=== PATIENT | male | born 1955 | race Caucasian/White ===

== ENCOUNTER 2017-10-11 13:34 | Inpatient (IN) | payer OTHER ==
[~2017-10-11] VITALS: Ht 172.7 cm; Wt 70.8 kg
[~2017-10-11 13:34] MED LIST: AMLODIPINE10 MG PO; AUGMENTIN 875 M1 TAB PO; LISINOPRIL40 MG PO; METOPROLOL TAR100 MG PO; PRINIVIL20 MG PO
--- NOTE | 2017-10-11 14:56 | RADIOLOGY REPORT ---
EXAMINATION: XR CHEST CLINICAL INFORMATION: Cough, nausea, vomiting COMPARISON: 07/08/2014 TECHNIQUE: 2 views of the chest were obtained. FINDINGS: Examination is somewhat limited by lordotic positioning. The cardiomediastinal contours appear similar compared to previous. Heavy calcification at the level of the aortic arch is unchanged. The lungs are clear without consolidation or effusion. There are mild multilevel degenerative changes involving the midthoracic spine. IMPRESSION: No acute cardiopulmonary process.
--- NOTE | 2017-10-11 15:01 | ED GENERAL ADULT ---
See Addendum History of Present Illness General Chief Complaint: General Adult Stated Complaint: MULTIPLE COMPLAINTS Source: patient, old records Exam Limitations: no limitations Vital Signs & Intake/Output Vital Signs & Intake/Output Vital Signs Date Time Temp Pulse Resp B/P B/P Pulse O2 O2 Flow FiO2 Mean Ox Delivery Rate 10/11 1739 97.8 80 15 133/61 100 Room Air Room Air 10/11 1713 98.7 74 20 140/63 100 Room Air 10/11 1553 Room Air Room Air 10/11 1355 96.4 78 15 122/77 97 Room Air Room Air Allergies Coded Allergies: procaine (HEART PALPITATIONS FOR A MINUTE AND A HALF 10/11/17) Reconcile Medications Amlodipine Besylate 10 MG TABLET 1 TAB PO DAILY BP (Reported) Chlorthalidone 25 MG TABLET 1 TAB PO DAILY BP (Reported) Lisinopril 40 MG TABLET 1 TAB PO DAILY BP (Reported) Metoprolol Tartrate 100 MG TABLET 1.5 TAB PO BID HEART/BP (Reported) Triage Note: PT TO ED FOR MULTIPLE COMPLAINTS INCLUDING DIFFUSE ABD PAIN, SHOULDER PAIN AND NECK PAIN X 4 WEEKS WITH DECREASED APPETITE AND WEAKNESS WITH SOB. REPORTS EXTREME FATIGUE WITH EXERTION, SPECIFICALLY WALKING UP STAIRS. Triage Nurses Notes Reviewed? yes Onset: 1 month Duration: week(s):, constant, continues in ED, getting worse Timing: recent history Injury Environment: home Severity: moderate, severe Modifying Factors: Worsens With: eating, movement. Associated Symptoms: back pain, cough HPI: 1 month prior to admission patient complains of frequent loose watery stool anorexia abdominal discomfort fatigue and weakness. Several days prior to admission he complains of increasing abdominal distention with nausea. 1 day prior to admission symptoms continued nausea vomiting and increased weakness unable to climb stairs. He denies fever chills chest pain shortness of breath headache dysuria rash bleeding. Past History Travel History Traveled to [place] past 21 day No Medical History Any Pertinent Medical History? see below for history Neurological: NONE EENT: NONE Cardiovascular: hypertension, abnormal EKG findings Respiratory: NONE Gastrointestinal: pancreatitis Hepatic: NONE Renal: AKF Musculoskeletal: NONE Psychiatric: NONE Endocrine: NONE Blood Disorders: NONE Cancer(s): NONE Other Medical Hx: Severe plaque psoriasis History of MRSA: No History of VRE: No History of CDIFF: No Surgical History Surgical History: non-contributory Psychosocial History Who do you live with Mother Services at Home None What is your primary language Ghanaian Tobacco Use: Current Daily Use Daily Tobacco Use Amount/Type: => 5 Cigarettes daily ETOH Use: heavy use Illicit Drug Use: denies illicit drug use Family History Family History, If Any: FATHER FH: brain cancer FH: lung cancer MOTHER FH: breast cancer Relation not specified for: FH: CAD (coronary artery disease) FH: hyperlipidemia FH: hypertension Hx Contributory? No Review of Systems Review of Systems Constitutional: Reports: see HPI, weakness. EENTM: Reports: no symptoms. Respiratory: Reports: see HPI, cough. Cardiovascular: Reports: no symptoms. GI: Reports: see HPI, abdominal pain, diarrhea, nausea, vomiting. Genitourinary: Reports: no symptoms. Musculoskeletal: Reports: no symptoms. Skin: Reports: no symptoms. Neurological/Psychological: Reports: no symptoms. Hematologic/Endocrine: Reports: no symptoms. Immunologic/Allergic: Reports: no symptoms. All Other Systems: Reviewed and Negative Physical Exam Physical Exam General Appearance: well developed/nourished, alert, awake, anxious, moderate distress, thin Head: atraumatic, normal appearance Eyes: Bilateral: normal appearance, PERRL, EOMI. Ears, Nose, Throat: normal pharynx, Dry mucous membranes Neck: normal inspection, supple, full range of motion, no midline tenderness Respiratory: normal breath sounds, chest non-tender, no respiratory distress, quiet respiration, lungs clear Cardiovascular: regular rate/rhythm, normal peripheral pulses, norml femoral pulses equa Peripheral Pulses: 4+ carotid (R), 4+ carotid (L) Gastrointestinal: soft, abnormal bowel sounds, distention, tenderness Back: normal inspection, vertebral tenderness, decreased range of motion Extremities: normal inspection, normal capillary refill, normal range of motion, no edema, no ligament instability Neurologic/Psych: no motor/sensory deficits, awake, alert, oriented x 3, normal gait, 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 Skin: intact, normal color, warm/dry Lymphatic: no anterior cervical sarah beth Core Measures ACS in differential dx? Yes CVA/TIA Diagnosis: No Sepsis Present: No Sepsis Focused Exam Completed? No Progress Differential Diagnoses I considered the following diagnoses in my evaluation of the patient: Pancreatitis dehydration pneumonia UTI pyelonephritis and acute renal failure Plan of Care: Orders Procedure Date/time Status Admit to inpatient 10/11 1641 Active Enrique, Insertion/Removal/Asses 10/11 1641 Active CULTURE,URINE 10/11 1641 Active URINALYSIS 10/11 1431 Complete TROPONIN LEVEL 10/11 1431 Complete PARTIAL THROMBOPLASTIN TIME 10/11 1431 Complete PROTHROMBIN TIME 10/11 1431 Complete AMMONIA 10/11 1431 Complete MAGNESIUM 10/11 1431 Complete LIPASE 10/11 1431 Complete ETHANOL 10/11 1431 Complete COMPREHENSIVE METABOLIC PANEL 10/11 1431 Complete CBC WITHOUT DIFFERENTIAL 10/11 1431 Complete EKG 10/11 1400 Active Current Medications Sig/Bruce Start time Last Medication Dose Stop Time Status Admin Sodium Bicarbonate 100 MEQ CONTINOUS INFUSION 10/11 1700 UNir (Sodium Bicarbonate 8.4%) Dextrose/Water 1,000 ML (D5W 1000) Laboratory Tests 10/11/17 1632: Urinalysis LIGHT H, Urine Color YEL, Urine Clarity CLEAR, Urine pH 6.0, Ur Specific [place] 1.025, Urine Protein 100 H, Urine Ketones NEG, Urine Nitrite NEG, Urine Bilirubin NEG, Urine Urobilinogen 0.2, Ur Leukocyte Esterase NEG, Ur Microscopic SEDIMENT EXAMINED, Urine RBC 1-3, Urine WBC RARE, Ur Epithelial Cells RARE, Urine Hemoglobin TRACE-INTACT H, Urine Glucose NEG 10/11/17 1545: Anion Gap 24 H, Estimated GFR 14 L, BUN/Creatinine Ratio 27.3 H, Glucose 88, Calcium 9.2, Magnesium 1.9, Total Bilirubin 0.6, AST 21, ALT 39, Alkaline Phosphatase 113, Ammonia < 9 L, Troponin I < 0.01, Total Protein 7.8, Albumin 4.2, Globulin 3.6, Albumin/Globulin Ratio 1.2, Lipase 46904 H, PT 10.0, INR 0.92, APTT 28, CBC w Diff NO MAN DIFF REQ, RBC 3.20 L, MCV 97.2 H, MCH 32.9 H , MCHC 33.9, RDW 13.2, MPV 9.5, Gran % 79.7 H, Lymphocytes % 6.9 L, Monocytes % 13.1 H, Eosinophils % 0.2, Basophils % 0.1, Absolute Granulocytes 4.0, Absolute Lymphocytes 0.3 L, Absolute Monocytes 0.7 H, Absolute Eosinophils 0, Absolute Basophils 0, Serum Alcohol < 10.0 Microbiology 10/11 1752 URINE ROUT: Urine Culture - RECD Diagnostic Imaging: Viewed by Me: CT Scan. Discussed w/RAD: CT Scan. Radiology Impression: Acute on chronic pancreatitis. No organized fluid collection. CXR Impression: No acute cardiopulmonary process. Initial ED EKG: normal axis, normal intervals, normal p-waves, normal QRS complex, normal sinus rhythm, deeper t wave inversions than previous in anterolat leads Prior EKG: changed Rhythm Strip: normal sinus rhythm Departure Departure Time of Disposition: 1650 Disposition: STILL A PATIENT Condition: Stable Clinical Impression Primary Impression: Pancreatitis, alcoholic, acute Secondary Impressions: Acute electrocardiogram changes, Acute renal failure, Diarrhea, Hyperkalemia Referrals: Blayne LYONS,Contreras Adams (PCP/Family) Departure Forms: Customer Survey General Discharge Information Admission Note Spoke With: Mike Gutierrez MD Documentation of Exam: Documentation of any treatments & extenuating circumstances including Concerns Regarding Discharge (functional status, medication knowledge or non-compliance, living conditions, etc.) that warrant an admission rather than observation: Nothing by mouth IV hydration ICU monitoring IV analgesia serial lab exam serial EKG GI evaluation renal evaluation cardiology evaluaion medication adjustment continuing care discharge planning Critical Care Note Critical Care Note Critical Care Time: 30-74 min (75)
[2017-10-11 15:56] LABS: ABSOLUTE BASOPHIL COUNT 0 /CUMM (0.0-0.2); ABSOLUTE EOSINOPHIL COUNT 0 /CUMM (0.0-0.7); ABSOLUTE LYMPH COUNT 0.3 /CUMM (1.2-3.4); ABSOLUTE MONOCYTE COUNT 0.7 /CUMM (0.10-0.60); BASOPHIL % 0.1 % (0.0-2.0); EOSINOPHIL % 0.2 % (0-5); GRANULOCYTE % 79.7 % (42.2-75.2); HEMATOCRIT 31.1 % (42-52); MEAN CORPUSCULAR HGB 32.9 PG (27.0-31.0); MEAN CORPUSCULAR HGB CONC 33.9 G/DL (33.0-37.0); MEAN CORPUSCULAR VOLUME 97.2 FL (80.0-94.0); MEAN PLATELET VOLUME 9.5 FL (7.4-10.4); PLATELET COUNT 163 /CUMM (130-400); RBC DISTRIBUTION WIDTH 13.2 % (11.5-14.5)
[2017-10-11 16:06] LABS: PTT 28 SEC (25-37)
[2017-10-11] MEDS ORDERED: AMLODIPINE BESY10 M1 PO (17:16)
[2017-10-11] MEDS ORDERED: LISINOPRIL40 M1 PO (17:16)
[2017-10-11] MEDS ORDERED: METOPROLOL TAR100 M1 PO (17:16)
[2017-10-11] MEDS ORDERED: CHLORTHALIDONE25 M1 PO (17:17)
--- NOTE | 2017-10-11 17:23 | CT SCAN REPORT ---
EXAMINATION: CT ABDOMEN AND PELVIS WITHOUT CONTRAST CLINICAL INFORMATION: Weakness diarrhea, decreased urination COMPARISON: CT 08/20/2011 TECHNIQUE: Multidetector volumetric imaging was performed from the superior aspect of the liver through the pubic symphysis. Sagittal and coronal reformatted images were obtained on the technologist's workstation. DLP: 278 mGy-cm FINDINGS: LUNG BASES: The visualized lung bases are unremarkable. LIVER, GALLBLADDER, AND BILIARY TREE: The liver is normal in size, shape, and attenuation. No focal hepatic lesion or biliary ductal dilatation is present. The gallbladder is unremarkable with no evidence of radiopaque gallstones, gallbladder wall thickening, or obvious pericholecystic inflammatory changes. PANCREAS: There are scattered coarse calcifications throughout the pancreas indicative of previous inflammation. There is mild swelling of the uncinate process of the pancreas as well as stranding of the adjacent mesenteric fat. There are a few lymph nodes adjacent to the pancreatic head which measure up to 0.7 cm in size and overall increased in number. The remainder of the gland appears mildly prominent and there is stranding and inflammatory change of the adjacent mesentery which tracks inferiorly along the third and fourth portion of the duodenum. There are no peripancreatic fluid collections. SPLEEN: Unremarkable. ADRENAL GLANDS: Unremarkable. KIDNEYS AND URETERS: The kidneys are normal in size, shape, and attenuation. No hydronephrosis, hydroureter. There is a punctate calculus in the midpole region of the right kidney. A similar 1 mm punctate calcification is identified in the upper pole the right kidney as well. Mild symmetric perinephric stranding. BLADDER: Unremarkable. GASTROINTESTINAL TRACT: There are no dilated loops of small or large bowel. No significant stool burden. The appendix is normal in caliber. ABDOMINAL WALL: No significant hernia is appreciated. LYMPH NODES: Normal. VASCULAR: Diffuse atherosclerotic calcification of the abdominal aorta and iliac arteries.. PELVIC VISCERA: Unremarkable. OSSEOUS STRUCTURES: Mild degenerative changes at L5-S1 level including endplate changes and prominent anterior osteophytes.. IMPRESSION: Acute on chronic pancreatitis. No organized fluid collection.
--- NOTE | 2017-10-11 18:33 | History & Physical ---
Donnie LYONS,Trevor 10/11/17 1831: General Information and HPI Statement: I have seen and personally examined PERLITA LEYVA and documented this H&P. The patient is a 62 year old M who presented with a patient stated chief complaint of Abdominal pain. Exam Limitations: not alert/orientated History of Present Illness: 62 year-old gentleman with a past medical history of hypertension, severe psoriasis, alcohol abuse, pancreatitis, with complaints of history of generalized malaise, decreased oral intake, and abdominal pain. When seen at the ED patient had just received midazolam 4 mg and was markedly sedated. The history was obtained from ED records and a phone conversation with the patient's mom (she only had limited information). Pt is reported to have been below his baseline finctional baseline for about a week, associated symptoms included abdominal pain nausea and vomiting. His mom confirms that the patient is an active daily EtOH user averaging about 4-5 beers a day. Records indicated that patient has had previous pancreatitis episode. Full ROS unobtainable due to sedation. Allergies/Medications Allergies: Coded Allergies: procaine (HEART PALPITATIONS FOR A MINUTE AND A HALF 10/11/17) Home Med list Amlodipine Besylate 10 MG TABLET 1 TAB PO DAILY BP (Reported) Chlorthalidone 25 MG TABLET 1 TAB PO DAILY BP (Reported) Lisinopril 40 MG TABLET 1 TAB PO DAILY BP (Reported) Metoprolol Tartrate 100 MG TABLET 1.5 TAB PO BID HEART/BP (Reported) Past History Travel History Traveled to [place] past 21 day No Medical History Neurological: NONE EENT: NONE Cardiovascular: hypertension, abnormal EKG findings Respiratory: NONE Gastrointestinal: pancreatitis Hepatic: NONE Renal: AKF Musculoskeletal: NONE Psychiatric: NONE Endocrine: NONE Blood Disorders: NONE Cancer(s): NONE Other Medical Hx: Severe plaque psoriasis History of MRSA: No History of VRE: No History of CDIFF: No Surgical History Surgical History: non-contributory Past Family/Social History Family History Relations & Conditions if any FATHER FH: brain cancer FH: lung cancer MOTHER FH: breast cancer Relation not specified for: FH: CAD (coronary artery disease) FH: hyperlipidemia FH: hypertension Psychosocial History Services at Home: None ETOH Use: heavy use Illicit Drug Use: denies illicit drug use Review of Systems Review of Systems Constitutional: Reports: see HPI. Exam & Diagnostic Data Last 24 Hrs of Vital Signs/I&O Vital Signs Date Time Temp Pulse Resp B/P B/P Pulse O2 O2 Flow FiO2 Mean Ox Delivery Rate 10/110 97.6 78 18 107/60 99 Nasal 2.0L Cannula 10/11 1911 78 18 108/59 100 Nasal 2.0L Cannula 10/11 1902 78 18 121/58 100 Nasal 2.0L Cannula 10/11 1900 96.8 82 20 141/84 100 Room Air Room Air 10/11 1739 97.8 80 15 133/61 100 Room Air Room Air 10/11 1713 98.7 74 20 140/63 100 Room Air 10/11 1553 Room Air Room Air 10/11 1355 96.4 78 15 122/77 97 Room Air Room Air Intake & Output 10/11 1600 10/11 0800 10/11 0000 Intake Total 1000 Output Total Balance 1000 Intake, IV 1000 Intake, Oral 0 Patient 72.575 kg Weight Weight Estimated Measurement Method Physical Exam General Appearance sedated Skin No Significant Lesion Skin Temp/Moisture Exam: Warm/Dry Sepsis Skin Exam (color): Normal for Ethnicity HEENT Atraumatic, dry oral mucosa Neck Supple, No JVD Lymphatic Cervical nl Cardiovascular Regular Rate, Normal S1, Normal S2 Lungs Clear to Auscultation, Normal Air Movement Abdomen Normal Bowel Sounds, distended Neurological deffered, patient sedated Extremities No Edema, Normal Pulses, extensive bilateral wart on the dorsal and plantar surfaces, marked onchomycosis bilateral on all toes. Last 24 Hrs of Labs/Mejia: Laboratory Tests 10/11/17 1632: Urinalysis LIGHT H, Urine Color YEL, Urine Clarity CLEAR, Urine pH 6.0, Ur Specific [place] 1.025, Urine Protein 100 H, Urine Ketones NEG, Urine Nitrite NEG, Urine Bilirubin NEG, Urine Urobilinogen 0.2, Ur Leukocyte Esterase NEG, Ur Microscopic SEDIMENT EXAMINED, Urine RBC 1-3, Urine WBC RARE, Ur Epithelial Cells RARE, Urine Hemoglobin TRACE-INTACT H, Urine Glucose NEG 10/11/17 1632: Ur Random Creatinine 141.9, Ur Random Sodium 26 L, Ur Random Potassium 26.9, Fraction Sodium Excret 0.6 10/11/17 1545: Anion Gap 24 H, Estimated GFR 14 L, BUN/Creatinine Ratio 27.3 H, Glucose 88, Serum Osmolality 338 H, Calcium 9.2, Magnesium 1.9, Total Bilirubin 0.6, AST 21 , ALT 39, Alkaline Phosphatase 113, Ammonia < 9 L, Lactate Dehydrogenase 321, Troponin I < 0.01, Total Protein 7.8, Albumin 4.2, Globulin 3.6, Albumin/ Globulin Ratio 1.2, Triglycerides 290 H, Lipase 40871 H, PT 10.0, INR 0.92, APTT 28, CBC w Diff NO MAN DIFF REQ, RBC 3.20 L, MCV 97.2 H, MCH 32.9 H, MCHC 33.9, RDW 13.2, MPV 9.5, Gran % 79.7 H, Lymphocytes % 6.9 L, Monocytes % 13.1 H, Eosinophils % 0.2, Basophils % 0.1, Absolute Granulocytes 4.0, Absolute Lymphocytes 0.3 L, Absolute Monocytes 0.7 H, Absolute Eosinophils 0, Absolute Basophils 0, Serum Alcohol < 10.0 Microbiology 10/11 1856 UPPER RESP: Surveillance Culture - COLB 10/11 1856 GI: Surveillance Culture - COLB 10/11 175 URINE ROUT: Urine Culture - RECD Diagnostic Data CXR Results SERVICE DATE: 10/11/17143 EXAM TYPE: RAD - XRY-CHEST XRAY, TWO VIEWS EXAMINATION: XR CHEST CLINICAL INFORMATION: Cough, nausea, vomiting COMPARISON: 07/08/2014 TECHNIQUE: 2 views of the chest were obtained. FINDINGS: Examination is somewhat limited by lordotic positioning. The cardiomediastinal contours appear similar compared to previous. Heavy calcification at the level of the aortic arch is unchanged. The lungs are clear without consolidation or effusion. There are mild multilevel degenerative changes involving the midthoracic spine. IMPRESSION: No acute cardiopulmonary process. DICTATED BY: Kristen Bustillo MD Other Results SERVICE DATE: 10/11/17 EXAM TYPE: CAT - CT ABD & PELVIS W/O IV CONTRAS EXAMINATION: CT ABDOMEN AND PELVIS WITHOUT CONTRAST CLINICAL INFORMATION: Weakness diarrhea, decreased urination COMPARISON: CT 08/20/2011 TECHNIQUE: Multidetector volumetric imaging was performed from the superior aspect of the liver through the pubic symphysis. Sagittal and coronal reformatted images were obtained on the technologist's workstation. DLP: 278 mGy-cm FINDINGS: LUNG BASES: The visualized lung bases are unremarkable. LIVER, GALLBLADDER, AND BILIARY TREE: The liver is normal in size, shape, and attenuation. No focal hepatic lesion or biliary ductal dilatation is present. The gallbladder is unremarkable with no evidence of radiopaque gallstones, gallbladder wall thickening, or obvious pericholecystic inflammatory changes. PANCREAS: There are scattered coarse calcifications throughout the pancreas indicative of previous inflammation. There is mild swelling of the uncinate process of the pancreas as well as stranding of the adjacent mesenteric fat. There are a few lymph nodes adjacent to the pancreatic head which measure up to 0.7 cm in size and overall increased in number. The remainder of the gland appears mildly prominent and there is stranding and inflammatory change of the adjacent mesentery which tracks inferiorly along the third and fourth portion of the duodenum. There are no peripancreatic fluid collections. SPLEEN: Unremarkable. ADRENAL GLANDS: Unremarkable. KIDNEYS AND URETERS: The kidneys are normal in size, shape, and attenuation. No hydronephrosis, hydroureter. There is a punctate calculus in the midpole region of the right kidney. A similar 1 mm punctate calcification is identified in the upper pole the right kidney as well. Mild symmetric perinephric stranding. BLADDER: Unremarkable. GASTROINTESTINAL TRACT: There are no dilated loops of small or large bowel. No significant stool burden. The appendix is normal in caliber. ABDOMINAL WALL: No significant hernia is appreciated. LYMPH NODES: Normal. VASCULAR: Diffuse atherosclerotic calcification of the abdominal aorta and iliac arteries.. PELVIC VISCERA: Unremarkable. OSSEOUS STRUCTURES: Mild degenerative changes at L5-S1 level including endplate changes and prominent anterior osteophytes.. IMPRESSION: Acute on chronic pancreatitis. No organized fluid collection. DICTATED BY: Kristen Bustillo MD Assessment/Plan Assessment: Assessment 62-year-old gentleman with a past medical history significant for hypertension, psoriasis, and an active alcohol user,pancreatitis presents with abdominal pain in the setting of elevated lipase [id number] abdomen consistent with inflammatory changes of the pancreas but without any necrotic features. Impression * Acute pancreatitis as evident by elevated lipase, abdominal pain and CT finding. No evidence of necrosis, albeit the scan was with non contrast (pt has MARGI, cannot receive contrast). It is noted that his BUN is highly elevated which is a poor prognosis factor. He does have a BISAP score of 1. Given his daily history of alcohol intake of up to 4-5 beers and abscess of cholelithiasis , his acute pancreatitis is most likely secondary to alcohol abuse. Even though he has triglyceridemia, his level of 297 is not significant enough to typically cause acute pancreatitis. * High Anion Gap Metabolic acidosis with non osmolar gap (gap of 4). Differentals include acute kidney injury versus lactic acidosis. * Hyperkalemia with EKG changes (precordial lead T wave inversion). The Hyperkalemia is probably secondary to severe acidosis precipitated by acute kidney injury * Acute kidney injury. * Etoh use Plan Admit to ICU Bowel rest through nothing by mouth Lactated Ringer 250 mls per hour Obtain ABG Hydromorphone prn pain Obtain lactate levels Obtain serum osmolarity levels Will place a Enrique and observe strict ins and outs BEP one more time at 10:00 for potassium Avoid Nephrotoxic agents CIWA protocol, watch for withdrawal symptoms Ativan prn dosing for elevated BP consider IV meds (home regimen consists of metoprolol, hydrochlorothiazide, and Lisinopril) Code Status; full DVT prophylaxis: Heparin As Ranked By This Provider Problem List: 1. Hyperkalemia 2. Pancreatitis, alcoholic, acute 3. Acute renal failure 4. ETOH abuse Core Measures/Misc (01/26) Acute Coronary Syndrome ACS Diagnosis: No Congestive Heart Failure Congestive Heart Failure Diagnosis No Cerebrovascular Accident CVA/TIA Diagnosis: No VTE (View Protocol) VTE Risk Factors Acute Medical Illness No Mechanical VTE Prophylaxis d/t N/A MechProphylax Ordered No VTE Pharm Prophylaxis d/t NA PharmProphylax ordered Sepsis (View protocol) Sepsis Present: No If YES complete Sepsis Event Note If YES complete Sepsis Event Note Mike Gutierrez MD 10/12/17 0138: Core Measures/Misc (01/26) Sepsis (View protocol) If YES complete Sepsis Event Note If YES complete Sepsis Event Note Attending MD Review Statement Attending Statement Attending MD Statement: examined this patient, discuss w/resident/PA/VOLUMETRIC WEIGHER, agreed w/resident/PA/VOLUMETRIC WEIGHER, reviewed EMR data (avail), discussed with nursing Attending Assessment/Plan: Mr. Leyva is a 62-year-old male with a history of alcohol abuse, hypertension, severe surgery as his presents with complaints of generalized malaise and poor by mouth intake associated with abdominal pain. The history was obtained by conversation with the housestaff with mother as the patient was sedated. On examination blood pressure 107/60, heart rate of 78, afebrile, on 2 L of nasal cannula saturating 99% General Appearance Sleepy, arousable Skin Temp/Moisture Exam: Warm/Dry Sepsis Skin Exam (color): Normal for Ethnicity HEENT Atraumatic, dry oral mucosa Neck Supple Cardiovascular Normal S1, Normal S2, tachycardic Lungs Clear to Auscultation bilaterally Abdomen Soft, non tender, bowel sounds present Neurological Sedated, arousable Extremities No Edema, Normal Pulses, bilateral warts extensive in lower extremities Assessment 1. Acute pancreatitis with lipase of 27K 2. Severe anion gap metabolic acidosis - no osmolal gap 3. Acute kidney injury - likely pre-renal 4. Alcohol withdrawal Plan Admit to the intensive care unit. Nothing by mouth, IV fluids, CAT scan of the abdomen does not show any evidence of pancreatic necrosis - monitor off of antibiotics Appreciate nephrology recommendations continue with intravenous sodium bicarbonate infusion CIWA protocol. Strict i/o's Heparin SQ for DVT prophylaxis
[2017-10-11 20:45] VITALS: BP 140/70
[2017-10-12] VITALS (12 sets, daily range): BP systolic 92–146; BP diastolic 50–70
--- NOTE | 2017-10-12 00:37 | Procedure ---
Wilder Walters MD 10/12/17 0032: Minor Surgical Procedure Note Date of Procedure: 10/12/17 Procedure Note: Date: October 12, 2017 Time: 00:33 Indication: Intravenous access Resident/assist: Keny Henriquez Care Technician/primary surgeon: Wilder Walters Attending/supervisor solder making: Mike Schafer A time-out was completed verifying correct patient, procedure, site, positioning , and special equipment if applicable. The patient was placed in a Trendelenburg position appropriate for central line placement. The patients right neck was prepped and draped in sterile fashion. 1% Lidocaine was used to anesthetize the surrounding skin area. A triple lumen catheter was introduced into the the internal jugular vein under ultrasound guidance. The catheter was threaded smoothly over the guide wire and appropriate blood return was obtained. Each lumen of the catheter was evacuated of air and flushed with sterile saline. The catheter was then sutured in place to the skin and a sterile dressing applied. Perfusion to the extremity distal to the point of catheter insertion was checked and found to be adequate. Attending and resident were present for the entire procedure. Chest x-ray was obtained and confirmed that the tip of the central line at the level of the cavoatrial junction. Estimated Blood Loss: Less than 50 mL The patient tolerated the procedure well and there were no complications.
--- NOTE | 2017-10-12 01:29 | RADIOLOGY REPORT ---
EXAMINATION: XR PORTABLE CHEST CLINICAL INFORMATION: Triple lumen catheter placement COMPARISON: Multiple priors, most recent 10/11/2017 TECHNIQUE: Portable frontal view of the chest was obtained. FINDINGS: Right IJ central line tip lies at the level of the cavoatrial junction. Lung volumes are symmetric. Mild left suprahilar opacity may reflect scarring at the site of prior consolidation seen on 07/08/2014 CT. No evidence of pneumothorax, pleural effusion, or pulmonary edema. Cardiac size is within normal limits. Calcification is present at the aortic arch. No acute osseous findings are seen. IMPRESSION: Right IJ central line tip at the level of the cavoatrial junction.
[2017-10-12 06:41] LABS: ABSOLUTE BASOPHIL COUNT 0 /CUMM (0.0-0.2); ABSOLUTE EOSINOPHIL COUNT 0 /CUMM (0.0-0.7); ABSOLUTE GRANULOCYTE CT 2.6 /CUMM (1.4-6.5); ABSOLUTE LYMPH COUNT 0.3 /CUMM (1.2-3.4); ABSOLUTE MONOCYTE COUNT 0.4 /CUMM (0.10-0.60); BASOPHIL % 0.3 % (0.0-2.0); GRANULOCYTE % 78.6 % (42.2-75.2); MEAN CORPUSCULAR HGB 33.5 PG (27.0-31.0); MEAN CORPUSCULAR HGB CONC 34.9 G/DL (33.0-37.0); MEAN CORPUSCULAR VOLUME 96.2 FL (80.0-94.0); MEAN PLATELET VOLUME 9.6 FL (7.4-10.4); PLATELET COUNT 112 /CUMM (130-400); RED BLOOD CELL CT 2.81 /CUMM (4.70-6.10); WHITE BLOOD CELL COUNT 3.3 /CUMM (4.8-10.8)
--- NOTE | 2017-10-12 07:39 | PN- Resident CRCU ---
Jose Angel Brandt 10/12/17 0739: Subjective HPI/CRCU Issues: -Acute pancreatitis -AGMA -Hyperkalemia -MARGI -Liver cirrhossis -Thrombocytopenia -EKg changes - t wave inversion. -ETOH usage. 24 Hour Events: I have seen and examined the patient today morning, maximum temperature was found to be 96.9, pulse around 76 up to 82, normal sinus rhythm, respiration of 20, blood pressure 140/70, he was saturating 98% on room air continues to be on D5 half normal saline, off the bicarbonate drip now, continues to have Enrique, magnesium and multivitamin supplement. Does not offer any new complaint today.total intake 2448, output 3250. Objective Vital Signs & I&O Last 8 Hrs of Vitals and I&O: .. Exam General Appearance: well developed/nourished, no apparent distress Cardiovascular: regular rate/rhythm Gastrointestinal: normal bowel sounds, soft, non-tender Extremities: normal inspection, normal capillary refill Cranial Nerves: normal hearing, normal speech, PERRL Current Medications: Current Medications Sig/Bruce Start time Last Medication Dose Route Stop Time Status Admin Calcium Gluconate 0 .STK-MED ONE 10/11 1704 DC IV Calcium Gluconate 1 GM ONCE ONE 10/11 1700 DC 10/11 Sodium Chloride 100 ML IV 10/11 1759 1728 Dextrose 0 .STK-MED ONE 10/11 1702 DC IV Dextrose 25 GM ONCE ONE 10/11 1700 DC / IV 10/11 1701 1728 Dextrose/Sodium 1,000 ML Q6H 10/12 0930 DC Chloride IV Diphenhydramine HCl 0 .STK-MED ONE 10/11 1745 DC .ROUTE Enoxaparin Sodium 40 MG DAILY 10/12 0900 CAN SC Famotidine 0 .STK-MED ONE 10/11 1702 DC IV Famotidine 20 MG ONCE ONE 10/11 1615 DC 10/11 IV 10/11 1616 1728 Folic Acid 1 MG DAILY@10/11 AC 10/11 Sodium Chloride 50 ML IV 2140 Folic Acid 1 MG DAILY 10/11 1933 CAN IV Heparin Sodium 5,000 UNIT Q8 10/11 2200 AC 10/12 (Porcine) SC 0608 Hydromorphone HCl 1 MG Q4P PRN 10/11 1900 AC 10/12 IV 0857 Hydromorphone HCl 0.6 MG Q4P PRN 06 1900 AC IV Insulin Human Regular 10 UNITS ONCE ONE 10/11 1700 DC 06/ IV 10/11 1701 1728 Lactated Ringer's 1,000 ML .Q4H 10/11 1845 DC 06/ IV 2140 Lorazepam 2 MG ONE ONE 10/12 0030 DC 06/ IV 10/12 0031 0029 Lorazepam 0 Q1P PRN 06 1930 AC 06 IV 0857 Lorazepam 2 MG ONE ONE 10/11 1845 DC 06/ IV 10/11 1846 1848 Lorazepam 0 .STK-MED ONE 10/11 1845 DC .ROUTE Magnesium Sulfate 1 GM Q2H 10/12 1030 AC 06 Dextrose/Water 100 ML IV 10/12 1429 1054 Magnesium Sulfate 1 GM ONCE ONE 10/12 0330 DC 10/12 Dextrose/Water 100 ML IV 10/12 0729 0325 Metoclopramide HCl 0 .STK-MED ONE 10/11 1702 DC .ROUTE Metoclopramide HCl 5 MG ONCE ONE 10/11 1615 DC / IV 10/11 1616 1829 Midazolam HCl 2 MG STAT STA 10/12 0018 DC / IV 10/12 0019 0029 Midazolam HCl 5 MG .STK-MED ONE 10/12 0000 DC IM 10/12 0001 Midazolam HCl 4 MG ONCE ONE 10/11 1915 DC / IV 10/11 1916 1909 Morphine Sulfate 0 .STK-MED ONE 10/11 1701 DC .ROUTE Morphine Sulfate 4 MG ONCE ONE 10/11 1615 DC /02 IV 10/11 1616 1728 Ondansetron HCl 0 .STK-MED ONE 10/11 1541 DC .ROUTE Ondansetron HCl 4 MG ONCE ONE 10/11 1445 DC 06/02 IV 06 1446 1552 Potassium Chloride 40 MEQ Q6H 10/12 1130 AC Dextrose/Sodium 1,000 ML IV Chloride Potassium Chloride 40 MEQ 150 MLS/HR 10/12 1030 CAN IV Sodium Bicarbonate 50 MEQ ONCE ONE 10/11 1700 DC 06/02 IV / 1701 1807 Sodium Bicarbonate 100 MEQ Q10H 10/11 1700 DC 10/12 Dextrose/Water 1,000 ML IV 0220 Sodium Chloride 1,000 ML Q6H 10/11 2200 DC / IV 0607 Sodium Chloride 1,000 ML BOLUS ONE 10/11 1445 DC 06/ IV / 1544 1552 Sodium Chloride 1,000 ML BOLUS ONE 10/11 1445 DC / IV / 1544 1728 Thiamine HCl 0 .STK-MED ONE 10/12 2007 DC .ROUTE Thiamine HCl 100 MG DAILY@10/11 AC 10/11 Sodium Chloride 50 ML IV 2001 Impression/Plan Impression/Problem List Impression: Mr. Vallejo is a 62-year-old gentleman with past medical history of hypertension, severe psoriasis, alcohol abuse, pancreatitis presented with chief complain of generalized malaise, decreased oral intake and abdominal pain. Strength history was obtained from patient's mom, as as he himself could not contribute much history taking. As per his mom, he is an active daily EtOH user averaging 4-5 beers a day, he has had previous pancreatitis episodes before and had been having abdominal pain, nausea and vomiting for one week prior to presentation. In presentation he was afebrile with Tmax of 98.7, pulse of 82, respiration 20, blood pressure of 141 systolic and 84 diastolic, he was saturating 100% on room air. Labs were relevant for H/H of 10.5/31.1, potassium of 6, chloride of 109, bicarbonate of 8, BUN/creatinine of 1:30/4.4, serum osmolality of 338, anion gap of 24, lipase of 27,608, triglycerides of 290, ammonia less than 9, no white count, platelet of 163. Chest x-ray did not show any acute cardiopulmonary p CT abdomen and pelvis showed acute on chronic pancreatitis must scattered coarse calcification throughout the pancreas, no signs of necrotizing tenderness Problem List along with assessment and plan. Respiratory * patient saturating 98% on 2 L. chest x-ray confirmed a right IJ central line with tip at the level of the cavoatrial junction.Chest x-ray did not show any evidence of pleural effusion or signs of any infection, no acute cardiopulmonary process. Infectious disease. * white count stable. Cardiology. * mildly tachycardic. * ct to monitor Hematology. * Thrombocytopenia * 2/2 alcoholism * ct to monitor. Metabolic. Severe anion gap metabolic acidosis with low bicarbonate associated with hypokalemia, hypomagnesemia. * AG normalised * hypokalemia/ hypomg still present. * ct to replete as needed * ct iv hydration Alimentary/GI. Alimentary/GI. Acute pancreatitis * Evident by elevated lipase, abdominal pain, ct to monitor. * [place] 2 score of 11 however not all numbers were able to plug in - indicated at least 15% non-operative mortality. * BISAP score of 3, also indicating high mortality upto 15% and continue to monitor closely and monitor vitals in critical care unit. * Etiology of pancreatitis alcoholism, no evidence of necrotizing. * ct to keep the patient nothing by mouth,iv hydration, treatment of underlying etiology and alcohol withdrawal with IV Ativan, pain management with IV Dilaudid , signs of sepsis at this instance therefore we will hold off antibiotics, treat nausea with IV Zofran. Nephrology. * Severe acute kidney injury, baseline creatinine of 0.8, creatinine on presentation 4.4, improving by IV hydration, current creatinine 1.6, continue IV hydration, avoid all nephrotoxic medications, most likely prerenal in origin secondary to dehydration, continue to monitor BUN/creatinine. Diet : NPO DVT prophylaxis : heparin FC Pain Mx Problem List: 1. Acute electrocardiogram changes 2. Hyperkalemia 3. Pancreatitis, alcoholic, acute 4. Acute renal failure 5. High anion gap metabolic acidosis Pain Ratin Tomorrow's Labs & Rationales: bep, icu bundle for low platelet Plan DVT/Prophylaxis: pharmacological Stephania LYONS,[facility] 10/12/17 0841: Attending MD Review Statement Attending Sign Off Attending Cosign Statement: I have: examined this patient, reviewed [employer] EMR data, personally reviewd images, discussd w/resident/PA/SPECIAL SERVICE REPRESENTATIVE, discussed mgmt plan w/alex, discussed mgmt plan w/CM, discussed mgmt plan w/pt, agreed w/resident/PA/SPECIAL SERVICE REPRESENTATIVE, amended to note. Other Findings: This is a gentleman with history of hypertension, psoriasis, significant history of alcohol abuse, chronic pancreatitis came in with generalized malaise. Patient initially had significantly elevated lipase and CT abdomen was consistent with pancreatitis without any necrotic features. He is being admitted to the hospital for that. Full history as above IMPRESSION Acute pancreatitis, with no significant evidence of nephrosis but patient had a noncontrast CT. His initial BUN was elevated. His pancreatitis is probably related to alcoholic pancreatitis Severe metabolic acidosis which is resolving most likely related to kidney injury Hyperkalemia, acute renal failure which is slowly improving Significant EtOH Significant psoriasis with some evidence of hyperkeratosis RECOMMENDATION Continue IV fluids, change to D5 half-normal saline, reduce rate to 150 mL and reduce later Watch for pulmonary edema Continue as needed lorazepam Pain control Discontinue bicarbonate drip if he had any Watch urine output Patient remains critically ill keep in ICU
[2017-10-13] VITALS (15 sets, daily range): BP systolic 90–163; BP diastolic 51–85
[2017-10-13 04:29] LABS: ABSOLUTE BASOPHIL COUNT 0 /CUMM (0.0-0.2); ABSOLUTE EOSINOPHIL COUNT 0 /CUMM (0.0-0.7); ABSOLUTE LYMPH COUNT 0.5 /CUMM (1.2-3.4); ABSOLUTE MONOCYTE COUNT 0.6 /CUMM (0.10-0.60); BASOPHIL % 0.8 % (0.0-2.0); EOSINOPHIL % 0.6 % (0-5); HEMATOCRIT 24.8 % (42-52); MEAN CORPUSCULAR HGB 33.5 PG (27.0-31.0); MEAN CORPUSCULAR HGB CONC 34.4 G/DL (33.0-37.0); MEAN CORPUSCULAR VOLUME 97.4 FL (80.0-94.0); MEAN PLATELET VOLUME 9.7 FL (7.4-10.4); PLATELET COUNT 119 /CUMM (130-400); RBC DISTRIBUTION WIDTH 13.4 % (11.5-14.5); RED BLOOD CELL CT 2.55 /CUMM (4.70-6.10); WHITE BLOOD CELL COUNT 4.2 /CUMM (4.8-10.8)
[2017-10-13 04:36] LABS: PT 11.2 SEC (9.4-12.5)
--- NOTE | 2017-10-13 07:03 | PN- Resident CRCU ---
Subjective HPI/CRCU Issues: -Acute pancreatitis -AGMA -Hyperkalemia -MARGI -Liver cirrhossis -Thrombocytopenia -EKg changes - t wave inversion. -ETOH usage. 24 Hour Events: Patient's and examined bedside. His more alert and awake compared to previous days, however he still appears sedated. He is not oriented to time and place. His max ciwa score overnight was 14. Objective Vital Signs & I&O Last 8 Hrs of Vitals and I&O: Intake & Output 10/13 1600 10/13 0800 10/13 0000 Intake Total 1105 948 Output Total 350 470 Balance 755 478 Intake, IV 1105 948 Number 0 0 Bowel Movements Output, Urine 350 470 Patient 70.76 kg Weight Laboratory Tests 10/13 10/12 0408 1541 Chemistry Sodium (137 - 145 mmol/L) 142 141 Potassium (3.5 - 5.1 mmol/L) 4.8 4.0 Chloride (98 - 107 mmol/L) 116 H 110 H Carbon Dioxide (22 - 30 mmol/L) 19 L 21 L Anion Gap (5 - 16) 8 10 BUN (9 - 20 mg/dL) 62 H 73 H Creatinine (0.7 - 1.2 mg/dL) 1.2 1.3 H Estimated GFR (>60 ml/min) > 60 56 L BUN/Creatinine Ratio (7 - 25 %) 56.2 H Glucose (65 - 99 mg/dL) 164 H Calcium (8.4 - 10.2 mg/dL) 8.0 L Phosphorus (2.5 - 4.5 mg/dL) 2.2 L Magnesium (1.6 - 2.3 mg/dL) 1.9 2.2 Total Bilirubin (0.2 - 1.3 mg/dL) 0.2 AST (17 - 59 U/L) 12 L ALT (21 - 72 U/L) 28 Albumin (3.5 - 5.0 g/dL) 2.6 L Coagulation PT (9.4 - 12.5 SEC) 11.2 INR (0.90 - 1.17) 1.03 Hematology CBC w Diff NO MAN DIFF REQ WBC (4.8 - 10.8 /CUMM) 4.2 L RBC (4.70 - 6.10 /CUMM) 2.55 L Hgb (14.0 - 18.0 G/DL) 8.5 L Hct (42 - 52 %) 24.8 L MCV (80.0 - 94.0 FL) 97.4 H MCH (27.0 - 31.0 PG) 33.5 H MCHC (33.0 - 37.0 G/DL) 34.4 RDW (11.5 - 14.5 %) 13.4 Plt Count (130 - 400 /CUMM) 119 L MPV (7.4 - 10.4 FL) 9.7 Gran % (42.2 - 75.2 %) 73.0 Lymphocytes % (20.5 - 51.1 %) 11.0 L Monocytes % (1.7 - 9.3 %) 14.6 H Eosinophils % (0 - 5 %) 0.6 Basophils % (0.0 - 2.0 %) 0.8 Absolute Granulocytes (1.4 - 6.5 /CUMM) 3.0 Absolute Lymphocytes (1.2 - 3.4 /CUMM) 0.5 L Absolute Monocytes (0.10 - 0.60 /CUMM) 0.6 Absolute Eosinophils (0.0 - 0.7 /CUMM) 0 Absolute Basophils (0.0 - 0.2 /CUMM) 0 Intake & Output 10/13 1600 Intake Total Output Total Balance Patient 70.76 kg Weight Exam General Appearance: awake, not oriented to place and time Respiratory: normal breath sounds, chest non-tender, no respiratory distress Cardiovascular: regular rate/rhythm Gastrointestinal: normal bowel sounds, soft, non-tender Extremities: no edema Current Medications: Current Medications Sig/Bruce Start time Last Medication Dose Route Stop Time Status Admin Folic Acid 1 MG DAILY@10/11 DC 10/12 Sodium Chloride 50 ML IV 193 Heparin Sodium 5,000 UNIT Q8 10/11 2200 AC 10/13 (Porcine) SC 1402 Hydromorphone HCl 1 MG Q4P PRN 10/11 1900 AC 10/12 IV 2204 Hydromorphone HCl 0.6 MG Q4P PRN 10/11 1900 AC 10/13 IV 1504 Insulin Aspart 0 TIDAC 10/13 1700 AC 10/13 WI 1209 Insulin Human Regular 2 UNITS .STK-MED ONE 10/13 0514 DC IV 10/13 0515 Insulin Human Regular 0 Q6 10/12 1800 DC 10/13 SC 0521 Lorazepam 0 Q1P PRN 10/11 1930 AC 10/13 IV 0836 Metoprolol Tartrate 25 MG BID 10/13 1425 AC 10/13 PO 1452 Nicotine 14 MG DAILY 10/13 1458 10/13 TOP 1640 Nystatin 1 ROBINA TID 10/13 1059 10/13 TOP 1357 Potassium Chloride 40 MEQ Q6H 10/12 1130 DC 10/13 Dextrose/Sodium 1,000 ML IV 1046 Chloride Potassium Phosphate 15 mMol ONE ONE 10/13 0915 DC 10/13 Sodium Chloride 250 ML IV 10/13 1319 1046 Sodium Chloride 1,000 ML ONCE ONE 10/13 1100 AC / IV /05 0019 1112 Thiamine HCl 100 MG DAILY@10/11 DC 10/12 Sodium Chloride 50 ML IV 193 Impression/Plan Impression/Problem List Impression: Respiratory * patient saturating 98% on 2 L. Will attempt weaning off today. Infectious disease. * white count stable. Cardiology. * persitent tachycardic, will restart beta caleb. * ct to monitor Hematology. * Thrombocytopenia * 2/2 alcoholism * ct to monitor. Metabolic. Severe anion gap metabolic acidosis with low bicarbonate associated with hypokalemia, hypomagnesemia. * AG normalised * hypokalemia/ hypomag still present. * ct to replete as needed * ct iv hydration Alimentary/GI. Acute pancreatitis * Evident by elevated lipase, abdominal pain, ct to monitor. * [place] 2 score of 11 however not all numbers were able to plug in - indicated at least 15% non-operative mortality. * BISAP score of 3, also indicating high mortality upto 15% and continue to monitor closely and monitor vitals in critical care unit. * Etiology of pancreatitis alcoholism, no evidence of necrotizing. * ct to keep the patient nothing by mouth,iv hydration, treatment of underlying etiology and alcohol withdrawal with IV Ativan, pain management with IV Dilaudid , signs of sepsis at this instance therefore we will hold off antibiotics, treat nausea with IV Zofran. Nephrology. * Severe acute kidney injury, baseline creatinine of 0.8, creatinine on presentation 4.4, improving by IV hydration, current creatinine 1.6, continue IV hydration, avoid all nephrotoxic medications, most likely prerenal in origin secondary to dehydration, continue to monitor BUN/creatinine. Diet : advance to full liquid Plan: DOwngrade to gen med if HR stable. DVT prophylaxis : heparin FC Pain Mx Problem List: 1. High anion gap metabolic acidosis 2. Acute renal failure 3. Pancreatitis, alcoholic, acute Pain Ratin Tomorrow's Labs & Rationales: icu bundle Plan DVT/Prophylaxis: pharmacological
--- NOTE | 2017-10-13 09:59 | PN- Pulmonary ---
Subjective HPI/Critical Care Issues: Doing well stable Sleeping but easily arousable Objective Current Medications: Current Medications Sig/Bruce Start time Last Medication Dose Route Stop Time Status Admin Dextrose/Sodium 1,000 ML Q6H 10/12 0930 DC Chloride IV Folic Acid 1 MG DAILY@10/11 10/12 Sodium Chloride 50 ML IV 1931 Heparin Sodium 5,000 UNIT Q8 10/110 AC 10/13 (Porcine) SC 0519 Hydromorphone HCl 1 MG Q4P PRN 10/11 190 AC 10/12 IV 2204 Hydromorphone HCl 0.6 MG Q4P PRN 10/11 1900 AC 10/13 IV 0414 Insulin Human Regular 0 Q6 10/12 1800 10/13 SC 0521 Lorazepam 0 Q1P PRN 10/11 193 10/13 IV 0836 Magnesium Sulfate 1 GM Q2H 10/12 1030 DC 10/12 Dextrose/Water 100 ML IV 10/12 1429 1227 Potassium Chloride 40 MEQ Q6H 10/12 1130 AC 10/13 Dextrose/Sodium 1,000 ML IV 0412 Chloride Potassium Chloride 40 MEQ 150 MLS/HR 10/12 1030 CAN IV Potassium Phosphate 15 mMol ONE ONE 10/13 0915 Sodium Chloride 250 ML IV 10/13 1319 Thiamine HCl 100 MG DAILY@10/11 10/12 Sodium Chloride 50 ML IV 193 Vital Signs & I&O Last 24 Hrs of Vitals and I&O: Vital Signs Date Time Temp Pulse Resp B/P B/P Pulse O2 O2 Flow FiO2 Mean Ox Delivery Rate 10/13 0800 Nasal 2.0L Cannula 10/13 0800 98.0 117 24 114/70 10/13 0800 98.0 117 24 114/70 98 Nasal 2.0L Cannula 10/13 0716 94 92/63 / 0600 125 163/85 10/13 0400 91 90/56 10/13 0400 97.9 110 11 127/71 10/13 0400 97 Nasal 2.0L Cannula 10/13 0200 118 19 96/61 /04 0000 96.9 84 14 93/51 10/13 0000 93 Nasal 2.0L Cannula 10/12 2339 96.9 89 12 92/60 93 Nasal 2.0L Cannula 10/12 2200 95 19 119/68 10/12 2049 97.4 118 21 105/59 06/03 1800 97.1 86 16 94/50 06/03 1700 97.1 102 20 123/68 06/03 1600 97.1 87 18 102/70 06/03 1600 97.1 87 18 102/70 94 Room Air 06/03 1400 97.2 82 20 103/59 06/03 1200 97.2 82 22 110/62 06/03 1200 97.2 82 22 110/62 91 Room Air /03 1000 96.4 80 18 97/63 Intake & Output 10/13 1600 06 0800 06 0000 Intake Total 1105 948 Output Total 350 470 Balance 755 478 Intake, IV 1105 948 Number 0 0 Bowel Movements Output, Urine 350 470 Patient 156 lb Weight Laboratory Tests 10/13 10/12 10/12 0408 1541 0600 Blood Gas Bicarbonate Actual (22 - 26 MEQ/L) 20 L Mixed VBG pH (7.31 - 7.41 PH) 7.43 H Mixed VBG pCO2 (41 - 51 TORR) 30 L Mixed VBG O2 Saturation (35 - 45 TORR) 37 P-50 (Temp Corrected) N Carboxyhemoglobin (1.5 - 5.0 %) 0.7 L O2 Concentration % RA Chemistry Sodium (137 - 145 mmol/L) 142 141 Potassium (3.5 - 5.1 mmol/L) 4.8 4.0 Chloride (98 - 107 mmol/L) 116 H 110 H Carbon Dioxide (22 - 30 mmol/L) 19 L 21 L Anion Gap (5 - 16) 8 10 BUN (9 - 20 mg/dL) 62 H 73 H Creatinine (0.7 - 1.2 mg/dL) 1.2 1.3 H Estimated GFR (>60 ml/min) > 60 56 L BUN/Creatinine Ratio (7 - 25 %) 56.2 H Glucose (65 - 99 mg/dL) 164 H Calcium (8.4 - 10.2 mg/dL) 8.0 L Phosphorus (2.5 - 4.5 mg/dL) 2.2 L Magnesium (1.6 - 2.3 mg/dL) 1.9 2.2 Total Bilirubin (0.2 - 1.3 mg/dL) 0.2 AST (17 - 59 U/L) 12 L ALT (21 - 72 U/L) 28 Albumin (3.5 - 5.0 g/dL) 2.6 L Coagulation PT (9.4 - 12.5 SEC) 11.2 INR (0.90 - 1.17) 1.03 Hematology CBC w Diff NO MAN DIFF REQ WBC (4.8 - 10.8 /CUMM) 4.2 L RBC (4.70 - 6.10 /CUMM) 2.55 L Hgb (14.0 - 18.0 G/DL) 8.5 L Hct (42 - 52 %) 24.8 L MCV (80.0 - 94.0 FL) 97.4 H MCH (27.0 - 31.0 PG) 33.5 H MCHC (33.0 - 37.0 G/DL) 34.4 RDW (11.5 - 14.5 %) 13.4 Plt Count (130 - 400 /CUMM) 119 L MPV (7.4 - 10.4 FL) 9.7 Gran % (42.2 - 75.2 %) 73.0 Lymphocytes % (20.5 - 51.1 %) 11.0 L Monocytes % (1.7 - 9.3 %) 14.6 H Eosinophils % (0 - 5 %) 0.6 Basophils % (0.0 - 2.0 %) 0.8 Absolute Granulocytes (1.4 - 6.5 /CUMM) 3.0 Absolute Lymphocytes (1.2 - 3.4 /CUMM) 0.5 L Absolute Monocytes (0.10 - 0.60 /CUMM) 0.6 Absolute Eosinophils (0.0 - 0.7 /CUMM) 0 Absolute Basophils (0.0 - 0.2 /CUMM) 0 Miscellaneous Phlebotomy Draw Site TLC 10/12 10/12 10/12 0500 0210 0200 Blood Gas Bicarbonate Actual (22 - 26 MEQ/L) 16 L Mixed VBG pH (7.31 - 7.41 PH) 7.37 Mixed VBG pCO2 (41 - 51 TORR) 28 L Mixed VBG O2 Saturation (35 - 45 TORR) 33 L P-50 (Temp Corrected) N Carboxyhemoglobin (1.5 - 5.0 %) 0.1 L O2 Concentration % RA Chemistry Sodium (137 - 145 mmol/L) 140 141 Potassium (3.5 - 5.1 mmol/L) 3.6 3.9 Chloride (98 - 107 mmol/L) 109 H 111 H Carbon Dioxide (22 - 30 mmol/L) 19 L 16 L Anion Gap (5 - 16) 12 14 BUN (9 - 20 mg/dL) 84 H 95 H Creatinine (0.7 - 1.2 mg/dL) 1.6 H 2.0 H Estimated GFR (>60 ml/min) 44 L 34 L Glucose (65 - 99 mg/dL) 189 H 140 H Calcium (8.4 - 10.2 mg/dL) 8.2 L 8.2 L Phosphorus (2.5 - 4.5 mg/dL) 3.0 4.3 Magnesium (1.6 - 2.3 mg/dL) 1.7 1.4 L Total Bilirubin (0.2 - 1.3 mg/dL) 0.4 0.4 AST (17 - 59 U/L) 17 17 ALT (21 - 72 U/L) 38 29 Troponin I (<0.11 ng/ml) < 0.01 Albumin (3.5 - 5.0 g/dL) 3.0 L 3.2 L Hematology CBC w Diff NO MAN DIFF REQ WBC (4.8 - 10.8 /CUMM) 3.3 L RBC (4.70 - 6.10 /CUMM) 2.81 L Hgb (14.0 - 18.0 G/DL) 9.4 L Hct (42 - 52 %) 27.0 L MCV (80.0 - 94.0 FL) 96.2 H MCH (27.0 - 31.0 PG) 33.5 H MCHC (33.0 - 37.0 G/DL) 34.9 RDW (11.5 - 14.5 %) 13.0 Plt Count (130 - 400 /CUMM) 112 L MPV (7.4 - 10.4 FL) 9.6 Gran % (42.2 - 75.2 %) 78.6 H Lymphocytes % (20.5 - 51.1 %) 9.1 L Monocytes % (1.7 - 9.3 %) 11.0 H Eosinophils % (0 - 5 %) 1.0 Basophils % (0.0 - 2.0 %) 0.3 Absolute Granulocytes (1.4 - 6.5 /CUMM) 2.6 Absolute Lymphocytes (1.2 - 3.4 /CUMM) 0.3 L Absolute Monocytes (0.10 - 0.60 /CUMM) 0.4 Absolute Eosinophils (0.0 - 0.7 /CUMM) 0 Absolute Basophils (0.0 - 0.2 /CUMM) 0 Miscellaneous Phlebotomy Draw Site TLC Serology HIV 1&2 Ab Western Blot (NONREACTIVE) NONREACTIVE 10/11 Blood Gas pH (7.35 - 7.45 PH) 7.25 *L pCO2 (35 - 45 TORR) 16 L pO2 (80 - 100 TORR) 97 HCO3 (21 - 28 MEQ/L) 7 L ABG O2 Sat (Measured) (>96.0 %) 95.0 L P-50 (Temp Corrected) N Carboxyhemoglobin (1.5 - 5.0 %) 0.3 L O2 Concentration % R/A Temperature (97.0 - 100.0 FARH) 98.0 Chemistry Sodium (137 - 145 mmol/L) 141 Potassium (3.5 - 5.1 mmol/L) 4.3 Chloride (98 - 107 mmol/L) 113 H Carbon Dioxide (22 - 30 mmol/L) 9 *L Anion Gap (5 - 16) 19 H BUN (9 - 20 mg/dL) 106 *H Creatinine (0.7 - 1.2 mg/dL) 2.6 H Estimated GFR (>60 ml/min) 25 L BUN/Creatinine Ratio (7 - 25 %) 40.8 H Lactic Acid (0.7 - 2.1 mmol/L) 0.8 Miscellaneous Phlebotomy Draw Site RIGHT RADIAL 10/11 10/11 1632 1632 Toxicology Urine Opiates Screen (>2000 NG/ML) < 100 Methadone Screen (>300 NG/ML) < 40 Barbiturate Screen (>200 NG/ML) < 60 Ur Phencyclidine Scrn (>25 NG/ML) < 6.00 Amphetamines Screen (>1000 NG/ML) < 100 U Benzodiazepines Scrn (>200 NG/ML) < 85 Urine Cocaine Screen (>300 NG/ML) < 50 Urine Cannabis Screen (>50 NG/ML) < 5.00 Urines Urinalysis LIGHT H Urine Color (YEL,AMB,STR) YEL Urine Clarity (CLEAR) CLEAR Urine pH (5.0 - 8.0) 6.0 Ur Specific [place] (1.001 - 1.035) 1.025 Urine Protein (NEG,<30 MG/DL) 100 H Urine Ketones (NEG) NEG Urine Nitrite (NEG) NEG Urine Bilirubin (NEG) NEG Urine Urobilinogen (0.1 - 1.0 EU/dl) 0.2 Ur Leukocyte Esterase (NEG) NEG Ur Microscopic SEDIMENT EXAMINED Urine RBC (0 - 5 /HPF) 1-3 Urine WBC (0 - 2 /HPF) RARE Ur Epithelial Cells (NONE,FEW) RARE Urine Hemoglobin (NEG) TRACE-INTACT H Ur Random Creatinine (mg/dL) 141.9 Ur Random Sodium (30 - 90 mmol/L) 26 L Ur Random Potassium (mmol/L) 26.9 Fraction Sodium Excret (<1% %) 0.6 Urine Glucose (N MG/DL) NEG 10/11 1545 Chemistry Sodium (137 - 145 mmol/L) 141 Potassium (3.5 - 5.1 mmol/L) 6.0 *H Chloride (98 - 107 mmol/L) 109 H Carbon Dioxide (22 - 30 mmol/L) 8 *L Anion Gap (5 - 16) 24 H BUN (9 - 20 mg/dL) 130 *H Creatinine (0.7 - 1.2 mg/dL) 4.4 H Estimated GFR (>60 ml/min) 14 L BUN/Creatinine Ratio (7 - 25 %) 27.3 H Glucose (65 - 99 mg/dL) 88 Serum Osmolality (285 - 295 MOSM/KG) 338 H Calcium (8.4 - 10.2 mg/dL) 9.2 Magnesium (1.6 - 2.3 mg/dL) 1.9 Total Bilirubin (0.2 - 1.3 mg/dL) 0.6 AST (17 - 59 U/L) 21 ALT (21 - 72 U/L) 39 Alkaline Phosphatase (< 127 U/L) 113 Ammonia (9 - 30 umol/L) < 9 L Lactate Dehydrogenase (313 - 618 U/L) 321 Troponin I (<0.11 ng/ml) < 0.01 Total Protein (6.3 - 8.2 g/dL) 7.8 Albumin (3.5 - 5.0 g/dL) 4.2 Globulin (1.9 - 4.2 gm/dL) 3.6 Albumin/Globulin Ratio (1.1 - 2.2 %) 1.2 Triglycerides (<150 mg/dL) 290 H Lipase (23 - 300 U/L) 59140 H Coagulation PT (9.4 - 12.5 SEC) 10.0 INR (0.90 - 1.17) 0.92 APTT (25 - 37 SEC) 28 Hematology CBC w Diff NO MAN DIFF REQ WBC (4.8 - 10.8 /CUMM) 5.0 RBC (4.70 - 6.10 /CUMM) 3.20 L Hgb (14.0 - 18.0 G/DL) 10.5 L Hct (42 - 52 %) 31.1 L MCV (80.0 - 94.0 FL) 97.2 H MCH (27.0 - 31.0 PG) 32.9 H MCHC (33.0 - 37.0 G/DL) 33.9 RDW (11.5 - 14.5 %) 13.2 Plt Count (130 - 400 /CUMM) 163 MPV (7.4 - 10.4 FL) 9.5 Gran % (42.2 - 75.2 %) 79.7 H Lymphocytes % (20.5 - 51.1 %) 6.9 L Monocytes % (1.7 - 9.3 %) 13.1 H Eosinophils % (0 - 5 %) 0.2 Basophils % (0.0 - 2.0 %) 0.1 Absolute Granulocytes (1.4 - 6.5 /CUMM) 4.0 Absolute Lymphocytes (1.2 - 3.4 /CUMM) 0.3 L Absolute Monocytes (0.10 - 0.60 /CUMM) 0.7 H Absolute Eosinophils (0.0 - 0.7 /CUMM) 0 Absolute Basophils (0.0 - 0.2 /CUMM) 0 Toxicology Serum Alcohol (<10 MG/DL) < 10.0 Microbiology Date/Time Procedure - Status Source Growth 10/11 2109 Surveillance Culture - COMP UPPER RESP 10/11 2109 Surveillance Culture - COMP GI 10/12 1751 Urine Culture - RES URINE ROUT Impression/Plan Impression/Plan Impression/Plan: General Appearance: well developed/nourished, no apparent distress Cardiovascular: regular rate/rhythm Gastrointestinal: normal bowel sounds, soft, non-tender Extremities: normal inspection, normal capillary refill Cranial Nerves: normal hearing, normal speech, PERRL This is a gentleman with history of hypertension, psoriasis, significant history of alcohol abuse, chronic pancreatitis came in with generalized malaise. Patient initially had significantly elevated lipase and CT abdomen was consistent with pancreatitis without any necrotic features. He is being admitted to the hospital for that. IMPRESSION Resolving Acute pancreatitis, with no significant evidence of nephrosis but patient had a noncontrast CT. His initial BUN was elevated. His pancreatitis is probably related to alcoholic pancreatitis Resolved Severe metabolic acidosis Hyperkalemia, acute renal failure which is slowly improving Significant EtOH history Significant psoriasis with some evidence of hyperkeratosis RECOMMENDATION Reduce IVF to 75 cc Watch for pulmonary edema Continue as needed lorazepam Pain control Ok to eat Thiamine po Watch urine output Patient remains critically ill keep in ICU Ok to the floor today
--- NOTE | 2017-10-13 19:46 | ULTRASOUND REPORT ---
EXAMINATION: US TRIPLEX UPPER EXTREMITY UNILATERAL, RIGHT CLINICAL INFORMATION: Swelling. Rule out DVT. COMPARISON: None. TECHNIQUE: Color-flow triplex imaging with spectral analysis and compression Doppler were performed on the right upper extremity. The study is reportedly extremely limited due to bandages in place and portable technique. FINDINGS: The right internal jugular vein, right innominate vein and right upper subclavian vein are not readily visualized. The right mid subclavian vein, lower subclavian vein, axillary vein, brachial vein, basilic vein, and cephalic vein are fully compressible without evidence of intraluminal thrombus. IMPRESSION: Limited study without evidence of thrombosis in the right mid subclavian vein, right axillary vein, right brachial vein, right basilic vein, and right cephalic vein.
[2017-10-14] VITALS (10 sets, daily range): BP systolic 103–154; BP diastolic 61–100
[2017-10-14 04:43] LABS: ABSOLUTE BASOPHIL COUNT 0 /CUMM (0.0-0.2); ABSOLUTE EOSINOPHIL COUNT 0 /CUMM (0.0-0.7); ABSOLUTE GRANULOCYTE CT 2.5 /CUMM (1.4-6.5); ABSOLUTE LYMPH COUNT 0.5 /CUMM (1.2-3.4); ABSOLUTE MONOCYTE COUNT 0.8 /CUMM (0.10-0.60); BASOPHIL % 0.4 % (0.0-2.0); HEMATOCRIT 25.2 % (42-52); MEAN CORPUSCULAR HGB 32.8 PG (27.0-31.0); MEAN CORPUSCULAR HGB CONC 33.5 G/DL (33.0-37.0); MEAN CORPUSCULAR VOLUME 97.9 FL (80.0-94.0); MEAN PLATELET VOLUME 9.6 FL (7.4-10.4); RBC DISTRIBUTION WIDTH 13.8 % (11.5-14.5); RED BLOOD CELL CT 2.57 /CUMM (4.70-6.10)
[2017-10-14 05:30] LABS: GRANULOCYTE % 64.3 % (42.2-75.2); PLATELET COUNT 125 /CUMM (130-400)
--- NOTE | 2017-10-14 08:28 | PN- Housestaff ---
Subjective Follow-up For: Acute Pancreatitis Hyperkalemia Etoh withdrawal Subjective: Patient seen and examined at bedside. Complains of right wrist pain, same area that ultrasound was done last evening to rule out DVT. His overnight CIWA score ranged from 0 to 22. He 1 mg of lorazepam overnight as part of the prn dosing based on symptoms. Cardia seem to be improving after reinitiation of his metoprolol. Review of Systems Constitutional: Reports: see HPI. Objective Last 24 Hrs of Vital Signs/I&O Vital Signs Date Time Temp Pulse Resp B/P B/P Pulse O2 O2 Flow FiO2 Mean Ox Delivery Rate 10/14 1600 97.0 80 20 120/70 96 Room Air / 0800 97.5 102 20 140/72 98 Room Air / 0600 97.6 100 18 154/83 / 0527 98.0 99 18 153/91 / 0400 97.6 88 20 129/84 / 0200 97.8 82 12 127/71 06/05 0000 97.8 86 12 110/66 06/05 0000 97.8 89 12 110/66 96 Room Air Room Air 10/13 2240 98.6 114 24 152/80 10/13 2100 98.6 104 20 129/69 10/13 2005 120 160/84 10/13 2000 98.6 120 20 160/84 Intake & Output 10/14 1600 10/14 0800 10/14 0000 Intake Total 333 156 6976 Output Total 450 400 600 Balance -10 243 560 Intake, IV 40 523 600 Intake, Oral 400 120 560 Number 0 0 0 Bowel Movements Output, Urine 450 400 600 Physical Exam General Appearance: Alert, Oriented X3 Other Physical Findings: General Appearance: awake, not oriented to place and time Respiratory: normal breath sounds, chest non-tender, no respiratory distress Cardiovascular: regular rate/rhythm Gastrointestinal: normal bowel sounds, soft, non-tender Extremities: right wrist appears swollen, with some tenderness and decreased ROM Current Medications: Current Medications Sig/Bruce Start time Last Medication Dose Route Stop Time Status Admin Bisacodyl 10 MG ONCE ONE 10/14 1215 DC 10/14 RI 10/14 1216 1351 Folic Acid 1 MG DAILY 10/14 1502 AC / PO 1719 Furosemide 20 MG ONCE ONE 10/14 1845 DC 10/14 IV 10/14 184 1934 Heparin Sodium 5,000 UNIT Q8 10/11 2200 10/14 (Porcine) SC 1351 Hydromorphone HCl 1 MG Q4P PRN 10/11 1900 AC 10/14 IV 1714 Hydromorphone HCl 0.6 MG Q4P PRN 10/11 1900 AC 10/14 IV 1024 Insulin Aspart 0 TIDAC 10/13 1700 AC 10/14 SC 1216 Lorazepam 0 Q1P PRN 10/11 1930 10/14 IV 1024 Magnesium Sulfate 1 GM ONCE ONE 10/14 0530 DC 10/14 Dextrose/Water 100 ML IV 10/14 0929 0530 Metoprolol Tartrate 75 MG BID 10/14 2100 DC PO Metoprolol Tartrate 100 MG BID 10/14 2100 AC PO Metoprolol Tartrate 75 MG ONCE ONE 10/14 0930 DC 10/14 PO 10/14 0931 0928 Metoprolol Tartrate 50 MG BID 10/13 2100 DC 10/13 PO 2005 Nicotine 14 MG DAILY 10/13 1458 10/14 TOP 0928 Nystatin 1 ROBINA TID 10/13 1059 10/14 TOP 1352 Sodium Chloride 500 ML .Q6H40M / 1845 10/14 IV 10/15 0124 1934 Sodium Chloride 1,000 ML ONCE ONE 10/13 1100 DC 10/13 IV 10/14 0019 1112 Last 24 Hrs of Lab/Mejia Results Last 24 Hrs of Labs/Mics: Laboratory Tests 10/14/17 1550: Anion Gap 11, Estimated GFR > 60, BUN/Creatinine Ratio 33.6 H 10/14/17 0748: Uric Acid 9.1 H 10/14/17 0405: Anion Gap 11, Estimated GFR > 60, Glucose 109 H, Calcium 7.7 L, Phosphorus 3.3 , Magnesium 1.4 L, Total Bilirubin 0.3, AST 15 L, ALT 25, Albumin 2.8 L, CBC w Diff NO MAN DIFF REQ, RBC 2.57 L, MCV 97.9 H, MCH 32.8 H, MCHC 33.5, RDW 13.8, MPV 9.6, Gran % 64.3, Lymphocytes % 13.5 L, Monocytes % 20.8 H, Eosinophils % 1.0, Basophils % 0.4, Absolute Granulocytes 2.5, Absolute Lymphocytes 0.5 L, Absolute Monocytes 0.8 H, Absolute Eosinophils 0, Absolute Basophils 0 Orders CIWA Score (last 24 hrs): 6-11 Assessment/Plan Assessment: Respiratory * patient saturating 98% on RA, Infectious disease. * white count stable. Cardiology. * persitent tachycardic, will increase metoprolol to 100 mg po bid * ct to monitor Hematology. * Thrombocytopenia most likely 2/2 to etoh use. Appears to be stable for now. * ct to monitor. Metabolic. Severe anion gap metabolic acidosis with low bicarbonate associated with hypokalemia, hypomagnesemia. * AG normalised * hypokalemia/ hypomag still present. * ct to replete as needed * ct iv hydration Alimentary/GI. Acute pancreatitis Improving, able to tolerate full liquid diet with no complaints of abdominal pain or nausea/vomiting. Will advance him to regular solid tomorrow. Nephrology. * Severe acute kidney injury, baseline creatinine of 0.8, creatinine on presentation 4.4, improving by IV hydration, current creatinine 1.6, continue IV hydration, avoid all nephrotoxic medications, most likely prerenal in origin secondary to dehydration, continue to monitor BUN/creatinine. Problem List: 1. acute renal failure 2. Pancreatitis, alcoholic, acute 3. Hyperkalemia Pain Ratin Pain Location: GENERALIZED Pain Goal: Remain pain free Pain Plan: PER PATHWAY Tomorrow's Labs & Rationales: icu bundle
--- NOTE | 2017-10-14 09:28 | PN- CRCU ---
Subjective HPI/Critical Care Issues: Patient seen and examined at bedside. Complains of right wrist pain, same area that ultrasound was done last evening to rule out DVT. His overnight CIWA score ranged from 0 to 22. He 1 mg of lorazepam overnight as part of the prn dosing based on symptoms. Heart rate seem to be improving after reinitiation of his metoprolol. Objective Current Medications: Current Medications Sig/Bruce Start time Last Medication Dose Route Stop Time Status Admin Folic Acid 1 MG DAILY@10/11 DC 10/12 Sodium Chloride 50 ML IV 193 Heparin Sodium 5,000 UNIT Q8 10/11 2200 AC 10/14 (Porcine) SC 0530 Hydromorphone HCl 1 MG Q4P PRN 10/11 1900 AC 10/13 IV 2246 Hydromorphone HCl 0.6 MG Q4P PRN 10/11 1900 AC 10/13 IV 1504 Insulin Aspart 0 TIDAC 10/13 1700 AC 10/13 SC 1209 Insulin Human Regular 0 Q6 10/12 1800 IA 10/13 SC 0521 Lorazepam 0 Q1P PRN 10/11 1930 10/14 IV 0530 Magnesium Sulfate 1 GM ONCE ONE 10/14 0530 10/14 Dextrose/Water 100 ML IV 10/14 0929 0530 Metoprolol Tartrate 75 MG BID 10/14 2100 AC PO Metoprolol Tartrate 50 MG BID 10/13 2100 DC 10/13 PO 2005 Metoprolol Tartrate 25 MG BID 10/13 1425 DC 10/13 PO 1452 Nicotine 14 MG DAILY 10/13 1458 10/13 TOP 1640 Nystatin 1 ROBINA TID 10/13 1059 10/13 TOP 2005 Potassium Chloride 40 MEQ Q6H 10/12 1130 DC 10/13 Dextrose/Sodium 1,000 ML IV 1046 Chloride Potassium Phosphate 15 mMol ONE ONE 10/13 0915 DC 10/13 Sodium Chloride 250 ML IV 10/13 1319 1046 Sodium Chloride 1,000 ML ONCE ONE 10/13 1100 DC / IV 10/14 0019 1112 Thiamine HCl 100 MG DAILY@10/11 DC 10/12 Sodium Chloride 50 ML IV 1931 Vital Signs & I&O Last 24 Hrs of Vitals and I&O: Vital Signs Date Time Temp Pulse Resp B/P B/P Pulse O2 O2 Flow FiO2 Mean Ox Delivery Rate 06/05 0800 97.5 102 20 140/72 98 Room Air 06/05 0600 97.6 100 18 154/83 06/05 0527 98.0 99 18 153/91 06/05 0400 97.6 88 20 129/84 06/05 0200 97.8 82 12 127/71 06/05 0000 97.8 86 12 110/66 06/05 0000 97.8 89 12 110/66 96 Room Air Room Air 06/04 2240 98.6 114 24 152/80 06/04 2100 98.6 104 20 129/69 06/04 2005 120 160/84 06/04 2000 98.6 120 20 160/84 06/04 1800 125 20 142/81 06/04 1600 98.0 102 26 124/68 06/04 1600 98.0 102 26 124/68 95 Room Air /04 1452 120 124/68 06/04 1400 110 22 124/69 06/04 1200 Nasal 2.0L Cannula 10/13 1200 97.5 112 22 98/70 06/04 1000 108 22 109/63 Intake & Output / 1600 06/05 0800 06/05 0000 Intake Total 643 1160 Output Total 400 600 Balance 243 560 Intake, IV 523 600 Intake, Oral 120 560 Number 0 0 Bowel Movements Output, Urine 400 600 Impression/Plan Impression/Plan Impression/Plan: General Appearance: well developed/nourished, no apparent distress Cardiovascular: regular rate/rhythm Gastrointestinal: normal bowel sounds, soft, non-tender Extremities: normal inspection, normal capillary refill, rt wrist swollen rule out fracture Cranial Nerves: normal hearing, normal speech, PERRL This is a gentleman with history of hypertension, psoriasis, significant history of alcohol abuse, chronic pancreatitis came in with generalized malaise. Patient initially had significantly elevated lipase and CT abdomen was consistent with pancreatitis without any necrotic features. He is being admitted to the hospital for that. IMPRESSION Resolving Acute pancreatitis, with no significant evidence of nephrosis but patient had a noncontrast CT. His initial BUN was elevated. His pancreatitis is probably related to alcoholic pancreatitis Resolved Severe metabolic acidosis Hyperkalemia, acute renal failure which is slowly improving Significant EtOH history Significant psoriasis with some evidence of hyperkeratosis Rt wrist swelling rule out fractue RECOMMENDATION Dc ivf Xray of wrist and check uric acid ORtho eval after the xray Continue as needed lorazepam Pain control Ok to eat Thiamine po Ok to the floor today
--- NOTE | 2017-10-14 14:47 | RADIOLOGY REPORT ---
EXAMINATION: XR WRIST, RIGHT CLINICAL INFORMATION: Right wrist swelling and pain. Presumptive diagnosis of acute right wrist fracture. COMPARISON: None TECHNIQUE: PA, lateral, and oblique views of the right wrist. FINDINGS: Disuse osteopenia. No acute fracture or dislocation. Mild soft tissue swelling over the wrist, most prominent along the distal radial aspect. No radiopaque foreign body. Mild degenerative changes seen in the carpus and first and fifth carpometacarpal joints. IMPRESSION: 1. Diffuse osteopenia. 2. Mild soft tissue swelling over the wrist with no acute fracture or dislocation.
[2017-10-15] VITALS (7 sets, daily range): BP systolic 126–161; BP diastolic 66–100
--- NOTE | 2017-10-15 07:19 | PN- Resident CRCU ---
Subjective HPI/CRCU Issues: Acute Pancreatitis, (initial lipase 02248) Tachycardia, titrating his Metoprolol EtOH withdrawal Anemia Thrombocytopenia Hyperkalemia, better Hypomagnesemia, repleted (today's pending) B/l lower extremity chronic fungal infection 24 Hour Events: Patient seen and followed up by me today. He is resting comfortably in bed, but drowsy, but responsive to verbal stimulus, does not currently complains currently. Overnight he complained of anxiety, pain, was given IV lorazepam as well as Dilaudid. His blood pressure was low yesterday, thus he received only half dose of his beta caleb, only at 4 AM. Over night CIWA score: 0-36 (max at 2200 hrs) IV Lorazepam: 1+2 mg IV Objective Vital Signs & I&O Last 8 Hrs of Vitals and I&O: Vital Signs Date Time Temp Pulse Resp B/P B/P Pulse O2 O2 Flow FiO2 Mean Ox Delivery Rate 10/15 0417 128 140/66 / 0400 98.0 118 18 140/66 /06 0249 98.0 128 32 161/66 06/06 0000 98.4 133 36 146/100 06/05 2300 98.3 60 16 103/61 97 Room Air 06/05 2214 98.5 101 20 94/68 06/05 2200 98.4 133 36 146/100 06/05 2000 98.5 88 20 146/80 06/05 1600 97.0 80 20 120/70 96 Room Air 06/05 0800 97.5 102 20 140/72 98 Room Air Intake & Output /06 0800 06/06 0000 06/05 1600 Intake Total 320 650 440 Output Total 600 1200 450 Balance -280 -550 -10 Intake, IV 120 400 40 Intake, Oral 200 250 400 Number 0 Bowel Movements Output, Stool 200 Output, Urine 600 1000 450 Exam General Appearance: well developed/nourished, awake, comfortable, drowsy, easily arousable Head: atraumatic, normal appearance Ears, Nose, Throat: normal pharynx, hearing grossly normal Neck: normal inspection, supple, full range of motion Respiratory: b/l coarse breath sounds, no wheezes heard Cardiovascular: regular rate/rhythm Gastrointestinal: normal bowel sounds, soft, non-tender, no deep palpation done Extremities: b/l lower extremity chronic fungal infection, including nails Cranial Nerves: normal hearing, normal speech, PERRL, grossly intact Skin: wound over b/l lower legs, well dressed Skin Temp/Moisture Exam: Warm/Dry Sepsis Skin Exam (color): Normal for Ethnicity Sepsis Peripheral Pulse Location: Radial Sepsis Peripheral Pulse Exam: Normal Sepsis Cap Refill Exam: <2 Sec Central Line Site: Rt IJV Need for Catheter: poor access Nutrition Nutrition: P.O. diet (Regular) Current Medications: Current Medications Sig/Bruce Start time Last Medication Dose Route Stop Time Status Admin Bisacodyl 10 MG ONCE ONE 10/14 1215 DC 10/14 CO 10/14 1216 1351 Folic Acid 1 MG DAILY 10/14 1502 AC 10/14 PO 1719 Furosemide 20 MG ONCE ONE 10/14 1845 DC 10/14 IV 10/14 1846 1934 Heparin Sodium 5,000 UNIT Q8 10/11 2200 AC 10/15 (Porcine) SC 0540 Hydromorphone HCl 1 MG Q4P PRN 10/11 1900 AC 10/14 IV 2225 Hydromorphone HCl 0.6 MG Q4P PRN 10/11 1900 AC 10/15 IV 0354 Insulin Aspart 0 TIDAC 10/13 1700 AC 10/14 SC 1216 Lorazepam 0 Q1P PRN 10/11 1930 AC 10/15 IV 0245 Magnesium Sulfate 1 GM ONCE ONE 10/14 0530 DC 10/14 Dextrose/Water 100 ML IV 10/14 0929 0530 Metoprolol Tartrate 50 MG ONCE ONE 10/15 0415 DC 10/15 PO 10/15 0416 0417 Metoprolol Tartrate 75 MG BID 10/14 2100 DC PO Metoprolol Tartrate 100 MG BID 10/14 2100 AC PO Metoprolol Tartrate 75 MG ONCE ONE 10/14 0930 DC 10/14 PO 10/14 0931 0928 Metoprolol Tartrate 50 MG BID 10/13 2100 DC 10/13 PO 2005 Nicotine 14 MG DAILY 10/13 1458 AC 10/14 TOP 0928 Nystatin 1 ROBINA TID 10/13 1059 10/14 TOP 2216 Sodium Chloride 500 ML .Q6H40M 10/14 1845 DC 10/14 IV 10/15 0124 1934 Impression/Plan Impression/Problem List Impression: 62-year-old male with past medical history of hypertension, psoriasis, alcohol abuse, chronic pancreatitis, who initially came in for generalized malaise, is currently being treated in the ICU for the management of following issues: Patient is currently being treated in the ICU as a gen med hold patient for the following issues: RESPIRATORY No issues INFECTIOUS DISEASE #Bilateral foot/nails chronic fungal infection -wound care requested CARDIOLOGY # HTN, tachycardia -Continuing home meds, metoprolol is being titrated up to 100 mg BID (home dose is 150 mg BID). He was not given his last evening dose due to low BP, which has now been continued. HEMATOLOGY No issues METABOLIC #Severe metabolic acidosis, resolved ALIMENTARY #Acute pancreatitis, likely due to alcohol use, resolving NEPHROLOGY No issues NEUROLOGY #Alcohol withdrawal Patient is currently on CIWA protocol, and continues to show some signs of withdrawal, requiring IV Ativan. No seizure reported so far. We'll continue to monitor him and follow CIWA protocol. HOUSEKEEPING Diet: Heart healthy diet, also getting a swallow eval DVT prophylaxis: SQ Heparin Code status: Full code IV access: Rt IJ Central line Disposition: Gen Med Problem List: 1. Pancreatitis, alcoholic, acute 2. Tachycardia 3. Alcohol withdrawal 4. ETOH abuse Pain Ratin Pain Location: - Pain Goal: Pain 4 or less Pain Plan: prn Tomorrow's Labs & Rationales: CBC, ICU lab bundle Plan DVT/Prophylaxis: pharmacological
[2017-10-15 08:19] LABS: ABSOLUTE BASOPHIL COUNT 0 /CUMM (0.0-0.2); ABSOLUTE EOSINOPHIL COUNT 0 /CUMM (0.0-0.7); ABSOLUTE GRANULOCYTE CT 3.2 /CUMM (1.4-6.5); ABSOLUTE LYMPH COUNT 0.3 /CUMM (1.2-3.4); ABSOLUTE MONOCYTE COUNT 0.7 /CUMM (0.10-0.60); BASOPHIL % 0.3 % (0.0-2.0); EOSINOPHIL % 0.2 % (0-5); GRANULOCYTE % 75.4 % (42.2-75.2); HEMATOCRIT 24.5 % (42-52); MEAN CORPUSCULAR HGB 33.3 PG (27.0-31.0); MEAN PLATELET VOLUME 10.9 FL (7.4-10.4); PLATELET COUNT 118 /CUMM (130-400); RBC DISTRIBUTION WIDTH 13.7 % (11.5-14.5); WHITE BLOOD CELL COUNT 4.3 /CUMM (4.8-10.8)
--- NOTE | 2017-10-15 10:00 | PN- Pulmonary ---
Subjective HPI/Critical Care Issues: Doing ok Wrist xray unremarkable Objective Current Medications: Current Medications Sig/Bruce Start time Last Medication Dose Route Stop Time Status Admin Bisacodyl 10 MG ONCE ONE 10/14 1215 DC 10/14 AR 10/14 1216 1351 Folic Acid 1 MG DAILY 10/14 1502 AC 10/15 PO 0819 Furosemide 20 MG ONCE ONE 10/14 1845 DC 10/14 IV 10/14 1846 1934 Heparin Sodium 5,000 UNIT Q8 10/11 2200 AC 10/15 (Porcine) SC 0540 Hydromorphone HCl 1 MG Q4P PRN 10/11 1900 AC 10/14 IV 2225 Hydromorphone HCl 0.6 MG Q4P PRN 10/11 1900 AC 10/15 IV 0354 Insulin Aspart 0 TIDAC 10/13 1700 AC 10/14 SC 1216 Lorazepam 0 Q1P PRN 10/11 1930 AC 10/15 IV 0245 Metoprolol Tartrate 50 MG ONCE ONE 10/15 0415 DC 10/15 PO 10/15 0416 0417 Metoprolol Tartrate 75 MG BID 10/14 2100 DC PO Metoprolol Tartrate 100 MG BID 10/14 2100 AC 10/15 PO 0819 Multivitamins 1 TAB DAILY 10/15 09 AC PO Nicotine 14 MG DAILY 10/13 1458 AC 10/15 TOP 0820 Nystatin 1 ROBINA TID 10/13 1059 10/15 TOP 0821 Sodium Chloride 500 ML .Q6H40M 10/14 1845 DC 10/14 IV 10/15 0124 1934 Thiamine HCl 100 MG DAILY 10/15 0900 AC PO Laboratory Tests 10/15 10/14 10/14 0515 2115 1550 Chemistry Sodium (137 - 145 mmol/L) 144 142 144 Potassium (3.5 - 5.1 mmol/L) 5.5 H 5.4 H 6.0 *H Chloride (98 - 107 mmol/L) 113 H 111 H 114 H Carbon Dioxide (22 - 30 mmol/L) 22 20 L 20 L Anion Gap (5 - 16) 9 10 11 BUN (9 - 20 mg/dL) 30 H 33 H 37 H Creatinine (0.7 - 1.2 mg/dL) 1.1 1.1 1.1 Estimated GFR (>60 ml/min) > 60 > 60 > 60 BUN/Creatinine Ratio (7 - 25 %) 30.0 H 33.6 H Glucose (65 - 99 mg/dL) 134 H Calcium (8.4 - 10.2 mg/dL) 8.3 L Phosphorus (2.5 - 4.5 mg/dL) 3.2 Magnesium (1.6 - 2.3 mg/dL) 1.4 L Total Bilirubin (0.2 - 1.3 mg/dL) 0.3 AST (17 - 59 U/L) 17 ALT (21 - 72 U/L) 23 Albumin (3.5 - 5.0 g/dL) 2.7 L Hematology CBC w Diff NO MAN DIFF REQ WBC (4.8 - 10.8 /CUMM) 4.3 L RBC (4.70 - 6.10 /CUMM) 2.50 L Hgb (14.0 - 18.0 G/DL) 8.3 L Hct (42 - 52 %) 24.5 L MCV (80.0 - 94.0 FL) 98.0 H MCH (27.0 - 31.0 PG) 33.3 H MCHC (33.0 - 37.0 G/DL) 34.0 RDW (11.5 - 14.5 %) 13.7 Plt Count (130 - 400 /CUMM) 118 L MPV (7.4 - 10.4 FL) 10.9 H Gran % (42.2 - 75.2 %) 75.4 H Lymphocytes % (20.5 - 51.1 %) 7.0 L Monocytes % (1.7 - 9.3 %) 17.1 H Eosinophils % (0 - 5 %) 0.2 Basophils % (0.0 - 2.0 %) 0.3 Absolute Granulocytes (1.4 - 6.5 /CUMM) 3.2 Absolute Lymphocytes (1.2 - 3.4 /CUMM) 0.3 L Absolute Monocytes (0.10 - 0.60 /CUMM) 0.7 H Absolute Eosinophils (0.0 - 0.7 /CUMM) 0 Absolute Basophils (0.0 - 0.2 /CUMM) 0 10/14 10/14 1287 0405 Chemistry Sodium (137 - 145 mmol/L) 145 Potassium (3.5 - 5.1 mmol/L) 5.9 H 6.0 *H Chloride (98 - 107 mmol/L) 115 H Carbon Dioxide (22 - 30 mmol/L) 19 L Anion Gap (5 - 16) 11 BUN (9 - 20 mg/dL) 42 H Creatinine (0.7 - 1.2 mg/dL) 1.1 Estimated GFR (>60 ml/min) > 60 Glucose (65 - 99 mg/dL) 109 H Uric Acid (3.5 - 8.5 mg/dL) 9.1 H Calcium (8.4 - 10.2 mg/dL) 7.7 L Phosphorus (2.5 - 4.5 mg/dL) 3.3 Magnesium (1.6 - 2.3 mg/dL) 1.4 L Total Bilirubin (0.2 - 1.3 mg/dL) 0.3 AST (17 - 59 U/L) 15 L ALT (21 - 72 U/L) 25 Albumin (3.5 - 5.0 g/dL) 2.8 L Hematology CBC w Diff NO MAN DIFF REQ WBC (4.8 - 10.8 /CUMM) 4.0 L RBC (4.70 - 6.10 /CUMM) 2.57 L Hgb (14.0 - 18.0 G/DL) 8.4 L Hct (42 - 52 %) 25.2 L MCV (80.0 - 94.0 FL) 97.9 H MCH (27.0 - 31.0 PG) 32.8 H MCHC (33.0 - 37.0 G/DL) 33.5 RDW (11.5 - 14.5 %) 13.8 Plt Count (130 - 400 /CUMM) 125 L MPV (7.4 - 10.4 FL) 9.6 Gran % (42.2 - 75.2 %) 64.3 Lymphocytes % (20.5 - 51.1 %) 13.5 L Monocytes % (1.7 - 9.3 %) 20.8 H Eosinophils % (0 - 5 %) 1.0 Basophils % (0.0 - 2.0 %) 0.4 Absolute Granulocytes (1.4 - 6.5 /CUMM) 2.5 Absolute Lymphocytes (1.2 - 3.4 /CUMM) 0.5 L Absolute Monocytes (0.10 - 0.60 /CUMM) 0.8 H Absolute Eosinophils (0.0 - 0.7 /CUMM) 0 Absolute Basophils (0.0 - 0.2 /CUMM) 0 Vital Signs & I&O Last 24 Hrs of Vitals and I&O: Vital Signs Date Time Temp Pulse Resp B/P B/P Pulse O2 O2 Flow FiO2 Mean Ox Delivery Rate 10/15 0800 99.5 100 20 136/70 98 Nasal 2.0L Cannula 10/15 0417 128 140/66 /06 0400 98.0 118 18 140/66 10/15 0249 98.0 128 32 161/66 06/ 0000 98.4 133 36 146/100 06/05 2300 98.3 60 16 103/61 97 Room Air 10/14 2214 98.5 101 20 94/68 / 2200 98.4 133 36 146/100 /05 2000 98.5 88 20 146/80 /05 1600 97.0 80 20 120/70 96 Room Air Intake & Output 10/15 1600 10/15 0800 10/15 0000 Intake Total 320 650 Output Total 600 1200 Balance -280 -550 Intake, IV 120 400 Intake, Oral 200 250 Output, Stool 200 Output, Urine 600 1000 Impression/Plan Impression/Plan Impression/Plan: General Appearance: well developed/nourished, no apparent distress Cardiovascular: regular rate/rhythm Gastrointestinal: normal bowel sounds, soft, non-tender Extremities: normal inspection, normal capillary refill, rt wrist swollen rule out fracture Cranial Nerves: normal hearing, normal speech, PERRL This is a gentleman with history of hypertension, psoriasis, significant history of alcohol abuse, chronic pancreatitis came in with generalized malaise. Patient initially had significantly elevated lipase and CT abdomen was consistent with pancreatitis without any necrotic features. He is being admitted to the hospital for that. IMPRESSION Resolving Acute pancreatitis, with no significant evidence of nephrosis but patient had a noncontrast CT. His initial BUN was elevated. His pancreatitis is probably related to alcoholic pancreatitis Resolved Severe metabolic acidosis Hyperkalemia, acute renal failure which is slowly improving Significant EtOH history Significant psoriasis with some evidence of hyperkeratosis Rt wrist swelling prob strain vs gout now needs immobilization RECOMMENDATION Dc ivf Prednisone 20 mg qd for three days for prob gout for wrist (urinc acid high) Continue as needed lorazepam Pain control Ok to eat Thiamine po Check tsh and free t4 watch lytes and creat daily Ok to the floor today
[2017-10-16] VITALS (7 sets, daily range): BP systolic 126–150; BP diastolic 70–78
--- NOTE | 2017-10-16 07:17 | PN- Housestaff ---
Kimmy LYONS,Maame 10/16/17 0717: Subjective Follow-up For: Acute Pancreatitis, (initial lipase 14853) Tachycardia, titrating his Metoprolol EtOH withdrawal Anemia Thrombocytopenia Hyperkalemia, better Hypomagnesemia, repleted (today's pending) B/l lower extremity chronic fungal infection Tele-Events Since Last Visit: No overnight events, tachycardia heart rate 102, Subjective: Patient was seen and examined at bedside, he looks sleepy and drowsy, he was hallucinating and agitated overnight and had to be given Ativan 1 mg at 3 AM, he received total of 7 mg Ativan in the last 24 hours, his maximum CIWA score is 17. Review of Systems Constitutional: Denies: no symptoms. Cardiovascular: Denies: no symptoms. Respiratory: Denies: no symptoms. Gastrointestinal: Denies: no symptoms. Skin: Reports: lesions. Objective Last 24 Hrs of Vital Signs/I&O Vital Signs Date Time Temp Pulse Resp B/P B/P Pulse O2 O2 Flow FiO2 Mean Ox Delivery Rate 10/16 1350 98.4 90 20 130/70 98 Room Air 10/16 0919 102 120/64 / 0635 98.6 90 18 126/70 98 Room Air / 0400 102 142/76 /07 0344 99.2 102 20 142/76 98 Room Air / 0029 98.9 99 22 148/78 /07 0028 98.9 99 22 148/78 97 Room Air / 2249 98.7 92 18 126/68 99 Room Air 10/15 2028 102 126/78 / 1611 98.5 96 130/68 97 Room Air 10/15 1600 72 10/15 1600 93 Nasal 1.0L Cannula Intake & Output 10/16 1600 10/16 0800 10/16 0000 Intake Total 420 240 240 Output Total 300 900 750 Balance 120 -660 -510 Intake, IV 60 Intake, Oral 360 240 240 Number 1 0 0 Bowel Movements Output, Urine 300 900 750 Physical Exam General Appearance: Alert, Oriented X3, Cooperative, No Acute Distress HEENT: Atraumatic, PERRLA, EOMI, Mucous Membr. moist/pink Cardiovascular: Normal S1, Normal S2, No Murmurs Lungs: Clear to Auscultation Abdomen: Normal Bowel Sounds, Soft, No Tenderness Neurological: Normal Speech, Strength at 5/5 X4 Ext, Normal Tone, Sensation Intact, Cranial Nerves 3-12 NL, Reflexes 2+ Extremities: all toe nail show extensive fungal infection, large psoriatic lesion on the right leg with erythema around it, pt lose the left second toe nail when he was agitated and combative last night Vascular: Normal Pulses Assessment/Plan Assessment: 62-year-old male with past medical history of hypertension, psoriasis, alcohol abuse, chronic pancreatitis, who initially came in for generalized malaise, is currently being treated in the ICU for the management of following issues: Patient is currently being treated in the ICU as a gen med hold patient for the following issues: RESPIRATORY No issues #Bilateral foot/nails chronic fungal infection -wound care requested Podiatry consult appreciated # HTN, tachycardia His tachycardia is most likely due to alcohol withdrawal -Continuing home meds, metoprolol is being titrated up to 100 mg BID, his heart rate today is 102, if heart rate increases above 110 and if the blood pressure allows we will consider starting metoprolol 150 twice daily #Severe metabolic acidosis, resolved #Acute pancreatitis, likely due to alcohol use, resolving #Anemia: Normocytic normochromic, hemoglobin 7.7, will check iron TIBC, ferritin , vitamin B12 and folic acid Guaiac all stool #Alcohol withdrawal Patient has maximum CIWA of 12 over the past 24 hours, he received 7 mg Ativan IV as needed, patient is currently not on scheduled Ativan because it caused severe sedation when he received in the ICU. Patient is currently on CIWA protocol, and continues to show some signs of withdrawal, especially last night requiring IV Ativan. No seizure reported so far. We'll continue to monitor him and follow CIWA protocol. Diet: Heart healthy diet, DVT prophylaxis: SQ Heparin Code status: Full code IV access: Rt IJ Central line Disposition: Gen Med Problem List: 1. Alcohol withdrawal 2. Tachycardia 3. Pancreatitis, alcoholic, acute Pain Ratin Pain Location: N/A Pain Goal: Remain pain free Pain Plan: Pathway Tomorrow's Labs & Rationales: CBC dexterp Maggie Duval 10/16/17 1048: Attending MD Review Statement Attending Statement Attending MD Statement: examined this patient, discuss w/resident/PA/AUTO FLEET MANAGER, agreed w/resident/PA/AUTO FLEET MANAGER, discussed with family, reviewed EMR data (avail), discussed with nursing, discussed with case mgmt, reviewed images, amended to note Attending Assessment/Plan: Patient transferred from ICU to floors. Patient treated for acute pancreatitis likely from alochol abuse. Patient scoring CIWA 7-12 overnight. He is delirius and aao x 2 oriented. Patient received 7mg of ativan. Patient also has psoriasis and acute gout flare up. Prednisone 20 mg x 3days short course. Patient continue with thiamine/folic acid. Lytes replacement as needed. Ativan prn for alcohol withdrawal. Podiatry conuslt for lesiosn on b/l foot. Advance diet as tolerated and reassess for restraints.
[2017-10-16 08:01] LABS: ABSOLUTE BASOPHIL COUNT 0 /CUMM (0.0-0.2); ABSOLUTE EOSINOPHIL COUNT 0 /CUMM (0.0-0.7); ABSOLUTE GRANULOCYTE CT 3.6 /CUMM (1.4-6.5); ABSOLUTE LYMPH COUNT 0.4 /CUMM (1.2-3.4); ABSOLUTE MONOCYTE COUNT 0.7 /CUMM (0.10-0.60); BASOPHIL % 0.3 % (0.0-2.0); EOSINOPHIL % 0.1 % (0-5); GRANULOCYTE % 76.3 % (42.2-75.2); HEMATOCRIT 22.5 % (42-52); MEAN CORPUSCULAR HGB 33.5 PG (27.0-31.0); MEAN CORPUSCULAR HGB CONC 34.3 G/DL (33.0-37.0); MEAN CORPUSCULAR VOLUME 97.6 FL (80.0-94.0); MEAN PLATELET VOLUME 10.8 FL (7.4-10.4); PLATELET COUNT 130 /CUMM (130-400); RBC DISTRIBUTION WIDTH 13.1 % (11.5-14.5); RED BLOOD CELL CT 2.31 /CUMM (4.70-6.10); WHITE BLOOD CELL COUNT 4.7 /CUMM (4.8-10.8)
--- NOTE | 2017-10-16 23:18 | Cons- Podiatry ---
General Information and HPI Consulting Request Date of Consult: 10/16/17 Requested By: Maggie Duval MD Reason for Consult: Psoriatic plaques both feet, traumatic left 2nd toenail avulsion, onychogryphosis Source of Information: patient Exam Limitations: no limitations History of Present Illness: This is a 62 year old male with multiple medical problems including active chronic alcoholism and psoriasis who is admitted for acute pancreatitis. Wound Care/Podiatry is consulted for multiple problems: 1) Large psoriatic plaques on both ankles, 2) A traumatic avulsion of the left 2nd toenail from a period of agitation earlier today in bed, 3) Onychogryphosis of the other 9 toenails. Pt reports he has had psoriasis his whole life, and has had multiple large plaques like these on other parts of his body. He does not recall the 2nd toe injury earlier today. He denies f/c/n/v/d/sob/cp at the time of my examination. Allergies/Medications Allergies: Coded Allergies: procaine (HEART PALPITATIONS FOR A MINUTE AND A HALF 10/11/17) Home Med List: Amlodipine Besylate 10 MG TABLET 1 TAB PO DAILY BP (Reported) Chlorthalidone 25 MG TABLET 1 TAB PO DAILY BP (Reported) Lisinopril 40 MG TABLET 1 TAB PO DAILY BP (Reported) Metoprolol Tartrate 100 MG TABLET 1.5 TAB PO BID HEART/BP (Reported) Current Medications: Current Medications Sig/Bruce Start time Last Medication Dose Route Stop Time Status Admin Folic Acid 1 MG DAILY 10/14 1502 AC 10/16 PO 0919 Heparin Sodium 5,000 UNIT Q8 10/11 2200 AC 10/16 (Porcine) SC 2107 Hydromorphone HCl 1 MG Q4P PRN 10/11 1900 AC 10/14 IV 2225 Hydromorphone HCl 0.6 MG Q4P PRN 10/11 1900 AC 10/16 IV 0336 Insulin Aspart 0 TIDAC 10/13 1700 AC 10/16 SC 1722 Lorazepam 0 Q1P PRN 10/11 1930 AC 10/16 IV 0310 Metoprolol Tartrate 100 MG BID 10/14 2100 AC 10/16 PO 2105 Multivitamins 1 TAB DAILY 10/15 0900 AC 10/16 PO 0920 Nicotine 14 MG DAILY 10/13 1458 AC 10/16 TOP 0919 Nystatin 1 ROBINA TID 10/13 1059 AC 10/16 TOP 2104 Prednisone 20 MG DAILY 10/15 1035 10/16 PO 10/17 0901 0920 Thiamine HCl 100 MG DAILY 10/15 09 10/16 PO 0920 Past History Medical History Blood Transfusion Hx: No Neurological: NONE EENT: NONE Cardiovascular: hypertension, abnormal EKG findings Respiratory: NONE Gastrointestinal: pancreatitis Hepatic: NONE Renal: MRAGI Musculoskeletal: NONE Psychiatric: NONE Endocrine: NONE Blood Disorders: NONE Cancer(s): NONE Other Medical Hx: Severe plaque psoriasis Surgical History Pertinent Surgical History: non-contributory Family History Relations & Conditions If Any: FATHER FH: brain cancer FH: lung cancer MOTHER FH: breast cancer Relation not specified for: FH: CAD (coronary artery disease) FH: hyperlipidemia FH: hypertension Psychosocial History Where Do You Live? Home Services at Home: None Smoking Status: Unknown If Ever Smoked ETOH Use: heavy use Illicit Drug Use: denies illicit drug use Review of Systems Review of Systems: 14 point review of systems was performed and found to be negative apart from his podiatric complaints at this time. Exam & Diagnostic Data Vital Signs and I&O Vital Signs Date Time Temp Pulse Resp B/P B/P Pulse O2 O2 Flow FiO2 Mean Ox Delivery Rate 10/16 2233 98.7 96 22 150/78 98 Room Air 10/16 2105 90 130/70 / 1350 98.4 90 20 130/70 98 Room Air / 0919 102 120/64 / 0635 98.6 90 18 126/70 98 Room Air / 0400 102 142/76 / 0344 99.2 102 20 142/76 98 Room Air / 0029 98.9 99 22 148/78 / 0028 98.9 99 22 148/78 97 Room Air Intake & Output 10/16 1600 10/16 0800 10/16 0000 10/15 1600 10/15 0800 10/15 0000 Intake Total 420 240 240 360 320 650 Output Total 300 900 750 039 672 2954 Balance 120 -660 -510 -365 -280 -550 Intake, IV 60 60 120 400 Intake, Oral 360 240 240 300 200 250 Number 1 0 0 2 Bowel Movements Output, Stool 200 Output, Urine 300 900 750 [phone] Physical Exam: Palpable pedal pulses, DP and PT 2/4 b/l. Temperature gradient is normal in both lower extremities. Capillary refill time is 3s in all ten toes. Sensation is diminished in the forefoot equal and bilateral on proprioceptive and light touch examinations. There is no edema BLE. There is no maceration BLE. There are large psoriatic plaques covering both the lateral leg and posterior and lateral ankle LLE, and the posterior right ankle. There are also small plaques dorsally over all ten digits. These are heavily crusted but not draining. The feet overall show evidence of very poor personal hygiene. Musculoskeletal exam is deferred secondary to skin compromise. The left 2nd toenail is completely avulsed and there is an intact nailbed with dried blood. The other 9 remaining toenails are gryphotic. Last 24 Hours of Labs: Laboratory Tests 10/16 0550 Chemistry Sodium (137 - 145 mmol/L) 146 H Potassium (3.5 - 5.1 mmol/L) 4.4 Chloride (98 - 107 mmol/L) 111 H Carbon Dioxide (22 - 30 mmol/L) 24 Anion Gap (5 - 16) 11 BUN (9 - 20 mg/dL) 22 H Creatinine (0.7 - 1.2 mg/dL) 1.1 Estimated GFR (>60 ml/min) > 60 Glucose (65 - 99 mg/dL) 127 H Calcium (8.4 - 10.2 mg/dL) 8.2 L Phosphorus (2.5 - 4.5 mg/dL) 3.1 Magnesium (1.6 - 2.3 mg/dL) 1.3 L Iron (49 - 181 ug/dL) 29 L TIBC (261 - 462 ug/dL) 187 L % Saturation (16 - 45 %) 15 L Ferritin (17.9 - 464 ng/mL) 355.0 Total Bilirubin (0.2 - 1.3 mg/dL) 0.4 AST (17 - 59 U/L) 28 ALT (21 - 72 U/L) 22 Albumin (3.5 - 5.0 g/dL) 2.6 L Vitamin B12 (239 - 931 pg/mL) 527 Folate (2.76 - 20.0 ng/mL) 8.8 Hematology CBC w Diff NO MAN DIFF REQ WBC (4.8 - 10.8 /CUMM) 4.7 L RBC (4.70 - 6.10 /CUMM) 2.31 L Hgb (14.0 - 18.0 G/DL) 7.7 L Hct (42 - 52 %) 22.5 L MCV (80.0 - 94.0 FL) 97.6 H MCH (27.0 - 31.0 PG) 33.5 H MCHC (33.0 - 37.0 G/DL) 34.3 RDW (11.5 - 14.5 %) 13.1 Plt Count (130 - 400 /CUMM) 130 MPV (7.4 - 10.4 FL) 10.8 H Gran % (42.2 - 75.2 %) 76.3 H Lymphocytes % (20.5 - 51.1 %) 8.8 L Monocytes % (1.7 - 9.3 %) 14.5 H Eosinophils % (0 - 5 %) 0.1 Basophils % (0.0 - 2.0 %) 0.3 Absolute Granulocytes (1.4 - 6.5 /CUMM) 3.6 Absolute Lymphocytes (1.2 - 3.4 /CUMM) 0.4 L Absolute Monocytes (0.10 - 0.60 /CUMM) 0.7 H Absolute Eosinophils (0.0 - 0.7 /CUMM) 0 Absolute Basophils (0.0 - 0.2 /CUMM) 0 Assessment/Plan Assessment/Plan 62 year old male with an acute traumatic left 2nd toenail avulsion, onychogryphosis of the other 9 toes, and stable psoriatic plaques of both lower extremities Patient seen and evaluated both by myself and VIKTORIYA Luna from wound care center Continue vaseline for the plaques for now, transition to topical triamcinolone upon discharge Left 2nd toe nailbed dressed with antibiotic ointment and band aid Other 9 gryphotic nails were aseptically debrided with a nail nipper Will f/u q2-3 days to monitor lesions, advise against debridement Consult Acknowledgment - Thank you for your consult request.
--- NOTE | 2017-10-17 00:57 | Discharge Summary ---
Visit Information Visit Dates Admission Date: 10/11/17 Discharge Date: 10/18/17 Hospital Course Course Attending Physician: Maggie Duval MD Primary Care Physician: Blayne LYONS,Contreras Adams Hospital Course: 62 year-old gentleman with a past medical history of hypertension, severe psoriasis, alcohol abuse (4 beers a day), pancreatitis, presented to [facility] with complaints of 1-2 week history of generalized malaise, decreased oral intake, and abdominal pain/nausea. Vital Signs on Presentation Date Time Temp Pulse Resp B/P B/P Pulse O2 O2 Flow FiO2 Mean Ox Delivery Rate 10/12 1919 97.6 78 18 107/60 99 Nasal 2.0L Cannula 10/11 1911 78 18 108/59 100 Nasal 2.0L Cannula 10/11 1902 78 18 121/58 100 Nasal 2.0L Cannula 10/11 1900 96.8 82 20 141/84 100 Room Air Room Air 10/11 1739 97.8 80 15 133/61 100 Room Air Room Air 10/11 1713 98.7 74 20 140/63 100 Room Air 10/11 1553 Room Air Room Air 10/11 1355 96.4 78 15 122/77 97 Room Air Room Air Physical Exam General Appearance sedated Skin No Significant Lesion Skin Temp/Moisture Exam: Warm/Dry Sepsis Skin Exam (color): Normal for Ethnicity HEENT Atraumatic, dry oral mucosa Neck Supple, No JVD Lymphatic Cervical nl Cardiovascular Regular Rate, Normal S1, Normal S2 Lungs Clear to Auscultation, Normal Air Movement Abdomen Normal Bowel Sounds, distended Neurological deffered, patient sedated Extremities No Edema, Normal Pulses, extensive bilateral hyper keratotic plaques the dorsal and plantar surfaces, marked onchomycosis/o bilateral on all toes. CT ABDOMEN/PELVIS: There is mild swelling of the uncinate process of the pancreas as well as stranding of the adjacent mesenteric fat. There are a few lymph nodes adjacent to the pancreatic head which measure up to 0.7 cm in size and overall increased in number. Pt was admitted to ICU for close monitoring of his Acute pancreatitis , and metabolic acidosis with electrolyte deraingement. On the 7th day of admission, patient was downgraded to Telemetry. During the hospital stay, the following issues were addressed: #Acute on chronic Pancreatitis. Pt presented with abdominal pain in the context of Lipase level of 27,[address] finding of pancreatic inflammation which was suggestive of acute on chronic presentation. Etiology was most likely due to Alcohol. There was no noted necrosis or pseudocyts. He was initially Kept NPO, aggresively hydrated and given pain meds. Due to peripheral access, a RIJ central line was placed. During the subsequent days, patient improved and his diet was slowly advance as tolerated and his abdominal symptoms resolved. #Anion Gap Metabolic Acidosis without osmolar gap. Pt presented with a pH of 7.2 and a Bicarb of 8. His lactic acid level was normal, urine tox was also unremarkable.It was thought that his AGMA was most likely 2/2 to renal failure. He was given Bicarb drip X1. On subsequent daays, his bicarb improved and on day 4-5, his acidosis resolved. #MARGI Pt presented with a creatinine level of 4.4, while his baseline was 0.8. His BUN /CR ratio was 27.3 and in the context of dehydration with a FENa of 0.6, his MARGI was deemed to be secondary to Pre-Renal. With adequate IVF, his creatinine normalized on day 5. #Hyperkalemia Presented with a K+ level of 6.0, his EKG did show abnormalities, with st segment depression on the anterolateral leads. His Hyperkalemia was most likely secondary to the metabolic acidosis and renal failure with possible exacerbation from his home Lisinopril use. He was administered calcium gluconate and IV insulin with dextrose and the THAO inhibitor was stopped during hospital stay. Pt had multiple episodes of hyperkalemia during his hospital stay. #Significant Etoh use Patient was placed on CIWA protocol and received symptom triggered prn Ativan. Pt had a propensity of becoming very sedated with low doses of Ativan or Dilaudid. Therefore he was not given schedule Ativan dose. No complications associated with Etoh withdrawal such as seizures or DTs were experienced by the patient. He was however noted to be persistently tachycardic, his beta caleb was restarted and titrated up to 100 mg bid (However his med reconciliation showed an outpatient claim of metoprolol 150 mg bid. # Swollen right wrist Upper Venous thrombosis was ruled out via doppler, Xray did not show any acute fracture. A uric acid was obtained which showed elevation (9.1). He was started on a 20 mg prednisone for 3 days and splint was placed on his wrist. # Pre diabetes: Pt was found to have HBA1c of 6, was cvered by low dose Insulin sliding scale, will need to follow up with his PCP for Life style modification #Severe Onychogryphosis of 9 toenails and A traumatic avulsion of the left 2nd toenail., Patient was seen by motors assembler who trimmed his toenails and recommended using Vaseline for his skin lesions and triamcinolone cream as outpatient Allergies: Coded Allergies: procaine (HEART PALPITATIONS FOR A MINUTE AND A HALF 10/11/17) Pertinent Lab Results: Laboratory Tests 10/11/17 1632: Urinalysis LIGHT H, Urine Color YEL, Urine Clarity CLEAR, Urine pH 6.0, Ur Specific [place] 1.025, Urine Protein 100 H, Urine Ketones NEG, Urine Nitrite NEG, Urine Bilirubin NEG, Urine Urobilinogen 0.2, Ur Leukocyte Esterase NEG, Ur Microscopic SEDIMENT EXAMINED, Urine RBC 1-3, Urine WBC RARE, Ur Epithelial Cells RARE, Urine Hemoglobin TRACE-INTACT H, Urine Glucose NEG 10/11/17 1632: Ur Random Creatinine 141.9, Ur Random Sodium 26 L, Ur Random Potassium 26.9, Fraction Sodium Excret 0.6 10/11/17 1545: Anion Gap 24 H, Estimated GFR 14 L, BUN/Creatinine Ratio 27.3 H, Glucose 88, Serum Osmolality 338 H, Calcium 9.2, Magnesium 1.9, Total Bilirubin 0.6, AST 21 , ALT 39, Alkaline Phosphatase 113, Ammonia < 9 L, Lactate Dehydrogenase 321, Troponin I < 0.01, Total Protein 7.8, Albumin 4.2, Globulin 3.6, Albumin/ Globulin Ratio 1.2, Triglycerides 290 H, Lipase 53019 H, PT 10.0, INR 0.92, APTT 28, CBC w Diff NO MAN DIFF REQ, RBC 3.20 L, MCV 97.2 H, MCH 32.9 H, MCHC 33.9, RDW 13.2, MPV 9.5, Gran % 79.7 H, Lymphocytes % 6.9 L, Monocytes % 13.1 H, Eosinophils % 0.2, Basophils % 0.1, Absolute Granulocytes 4.0, Absolute Lymphocytes 0.3 L, Absolute Monocytes 0.7 H, Absolute Eosinophils 0, Absolute Basophils 0, Serum Alcohol < 10.0 Disposition Summary Disposition Principal Diagnosis: Acute Pancreatitis, Additional Diagnosis: Tachycardia, titrating his Metoprolol EtOH withdrawal Anemia Thrombocytopenia Hyperkalemia, better Hypomagnesemia, repleted (today's pending) B/l lower extremity chronic fungal infection Discharge Disposition: home health services Discharge Instructions General Discharge Information Code Status: Full Code Patient's Diet: Heart healthy Patient's Activity: As tolerated Follow-Up Instructions/Appts: 1please follow-up with your PCP in 1 week of discharge 2please follow-up with your auctioneer automobile in 1 week of discharge 3please avoid using alcohol Medications at Discharge Discharge Medications: Stop taking the following medications: Amlodipine Besylate (Amlodipine Besylate) 10 MG TABLET ORAL DAILY Qty = 90 Lisinopril (Lisinopril) 40 MG TABLET ORAL DAILY Qty = 14 Metoprolol Tartrate (Metoprolol Tartrate) 100 MG TABLET ORAL TWICE DAILY Qty = 42 Chlorthalidone (Chlorthalidone) 25 MG TABLET ORAL DAILY Qty = 90 Start taking the following new medications: Metoprolol Tartrate (Lopressor) 100 MG TABLET 1 Tablet ORAL TWICE DAILY Qty = 60 No Refills Instructions: . Comments: Last Taken:10/18/17 Time:0800 Triamcinolone Acetonide (Triamcinolone Acetonide) 0.1 % OINT...G. 1 Application On the skin TWICE DAILY Qty = 2 No Refills Instructions: apply to affected area(s). Nicotine (Nicotine Patch) 14 MG/24 HOUR PATCH.TD24 14 Milligram On the skin DAILY Qty = 30 No Refills Comments: Last Taken:10/18/17 [id number] Copies To: Blayne LYONS,Contreras Adams Attending MD Review Statement Documenting Attending: Maggie Duval MD Other Findings: Discharging physician Dr Lang LYONS. Patient needs to follow up with PCP within few days of discharge.
[2017-10-17 06:41] VITALS: BP 142/64
--- NOTE | 2017-10-17 07:08 | PN- Housestaff ---
Kimmy LYONS,Maame 10/17/17 0708: Subjective Follow-up For: Acute Pancreatitis, (initial lipase 10645) Tachycardia, titrating his Metoprolol EtOH withdrawal Anemia Thrombocytopenia Hyperkalemia, better Hypomagnesemia, repleted (today's pending) B/l lower extremity chronic fungal infection Tele-Events Since Last Visit: No overnight events, heart rate 100-110 Subjective: Patient was seen and examined at bedside, he denies any complaints, he was seen by supervisor in charge last night, dressing and bandage was applied to his left second toe. Review of Systems Constitutional: Denies: no symptoms. Objective Last 24 Hrs of Vital Signs/I&O Vital Signs Date Time Temp Pulse Resp B/P B/P Pulse O2 O2 Flow FiO2 Mean Ox Delivery Rate 10/17 0641 98.9 98 18 142/64 99 Room Air / 0600 101 06/08 0400 90 06/08 0200 101 06/08 0000 115 06/ 2233 98.7 96 22 150/78 98 Room Air 10/16 1350 98.4 90 20 130/70 98 Room Air 10/16 0919 102 120/64 Intake & Output / 1600 /08 0800 06/08 0000 Intake Total 300 Output Total 350 400 Balance -350 -100 Intake, Oral 300 Output, Urine 350 400 Physical Exam General Appearance: Alert, Oriented X3, Cooperative, No Acute Distress HEENT: Atraumatic, PERRLA, EOMI, Mucous Membr. moist/pink Neck: Supple, No JVD Cardiovascular: Normal S1, Normal S2 Lungs: Clear to Auscultation Abdomen: Normal Bowel Sounds, Soft, No Tenderness Neurological: Normal Speech, Strength at 5/5 X4 Ext, Normal Tone, Sensation Intact Extremities: No Clubbing, No Cyanosis, No Edema, PSORIATIC PLAQUE ON THE LEFT LEG, LEFT 2 ND TOE IN BANDAGE Vascular: Normal Pulses Current Medications: Current Medications Sig/Bruce Start time Last Medication Dose Route Stop Time Status Admin Folic Acid 1 MG DAILY 10/14 1502 AC 10/16 PO 0919 Heparin Sodium 5,000 UNIT Q8 10/11 2200 AC 10/17 (Porcine) SC 0650 Hydromorphone HCl 1 MG Q4P PRN 10/11 1900 AC 10/14 IV 2225 Hydromorphone HCl 0.6 MG Q4P PRN 10/11 1900 AC 10/16 IV 0336 Insulin Aspart 0 TIDAC 10/13 1700 AC 10/16 SC 1722 Lorazepam 0 Q1P PRN 10/11 1930 10/16 IV 0310 Metoprolol Tartrate 100 MG BID 10/14 2100 AC 10/16 PO 0919 Multivitamins 1 TAB DAILY 10/15 0900 AC 10/16 PO 0920 Nicotine 14 MG DAILY 10/13 1458 10/16 TOP 0919 Nystatin 1 ROBINA TID 10/13 1059 10/16 TOP 2104 Prednisone 20 MG DAILY 10/15 1035 10/16 PO 10/17 0901 0920 Thiamine HCl 100 MG DAILY 10/15 0900 AC 10/16 PO 0920 Last 24 Hrs of Lab/Mejia Results Last 24 Hrs of Labs/Mics: Laboratory Tests 10/17/17 0655: Sodium Pending, Potassium Pending, Chloride Pending, Carbon Dioxide Pending, Anion Gap Pending, BUN Pending, Creatinine Pending, BUN/Creatinine Ratio Pending , CBC w Diff NO MAN DIFF REQ, RBC 2.64 L, MCV 97.8 H, MCH 33.4 H, MCHC 34.2, RDW 13.1, MPV 10.1, Gran % 74.4, Lymphocytes % 11.5 L, Monocytes % 13.4 H, Eosinophils % 0.5, Basophils % 0.2, Absolute Granulocytes 3.4, Absolute Lymphocytes 0.5 L, Absolute Monocytes 0.6, Absolute Eosinophils 0, Absolute Basophils 0 Assessment/Plan Assessment: 62-year-old male with past medical history of hypertension, psoriasis, alcohol abuse, chronic pancreatitis, who initially came in for generalized malaise, is currently being treated in the ICU for the management of following issues: Patient is currently being treated in the ICU as a gen med hold patient for the following issues: #Bilateral foot/nails chronic fungal infection -wound care requested Podiatry consult recommended to moisturize his feet with Vasline, triamcinolone cream on discharge, apply bandage to the left second toe, his toe nails were clipped by the supervisor in charge yesterday # HTN, tachycardia His tachycardia is most likely due to alcohol withdrawal (heartrate today is still over 110, stable blood pressure Continue metoprolol 100 twice daily daily #Severe metabolic acidosis, resolved #Acute pancreatitis, likely due to alcohol use, resolving #Anemia: Normocytic normochromic, hemoglobin 7.7, will check iron TIBC, ferritin , vitamin B12 and folic acid Guaiac all stool #Alcohol withdrawal Patient has maximum CIWA of 12 over the past 24 hours, he received 7 mg Ativan IV as needed, patient is currently not on scheduled Ativan because it caused severe sedation when he received in the ICU. Patient is currently on CIWA protocol, and continues to show some signs of withdrawal, especially last night requiring IV Ativan. No seizure reported so far. We'll continue to monitor him and follow CIWA protocol. Diet: Heart healthy diet, DVT prophylaxis: SQ Heparin Code status: Full code IV access: Rt IJ Central line Disposition: Gen Med Problem List: 1. Alcohol withdrawal 2. Tachycardia Pain Ratin Pain Location: N/A Pain Goal: Remain pain free Pain Plan: [facility] Labs & Rationales: CBC bep Maggie Duval 10/17/17 1034: Attending MD Review Statement Attending Statement Attending MD Statement: examined this patient, discuss w/resident/PA/CATTLE MANAGER, agreed w/resident/PA/CATTLE MANAGER, discussed with family, reviewed EMR data (avail), discussed with nursing, discussed with case mgmt, reviewed images, amended to note Attending Assessment/Plan: Patient seen/examined bedside. Patient treated for acute pancreatitis likely from alochol abuse. Patient scoring better on CIWA overnight. More awake, feels better. Tolerating PO. Patient also has psoriasis and acute gout flare up. Prednisone 20 mg x 3days short course. Patient continue with thiamine/folic acid. DC freedman catheter Lytes replacement as needed. Ativan prn for alcohol withdrawal. PT eval for general physical deconditioning. Podiatry consulted. Toe nail dressing done Anticipate dc in next 24 hrs as clinical condition improves.
[2017-10-17 07:30] LABS: ABSOLUTE BASOPHIL COUNT 0 /CUMM (0.0-0.2); ABSOLUTE EOSINOPHIL COUNT 0 /CUMM (0.0-0.7); ABSOLUTE GRANULOCYTE CT 3.4 /CUMM (1.4-6.5); ABSOLUTE LYMPH COUNT 0.5 /CUMM (1.2-3.4); ABSOLUTE MONOCYTE COUNT 0.6 /CUMM (0.10-0.60); BASOPHIL % 0.2 % (0.0-2.0); EOSINOPHIL % 0.5 % (0-5); GRANULOCYTE % 74.4 % (42.2-75.2); HEMATOCRIT 25.9 % (42-52); MEAN CORPUSCULAR HGB 33.4 PG (27.0-31.0); MEAN CORPUSCULAR HGB CONC 34.2 G/DL (33.0-37.0); MEAN CORPUSCULAR VOLUME 97.8 FL (80.0-94.0); MEAN PLATELET VOLUME 10.1 FL (7.4-10.4); PLATELET COUNT 145 /CUMM (130-400); RBC DISTRIBUTION WIDTH 13.1 % (11.5-14.5); RED BLOOD CELL CT 2.64 /CUMM (4.70-6.10); WHITE BLOOD CELL COUNT 4.6 /CUMM (4.8-10.8)
[2017-10-17] MEDS ORDERED: LOPRESSOR100 M1 PO (10:05)
[2017-10-17 14:00] VITALS: BP 108/60
--- NOTE | 2017-10-17 14:18 | Patient Discharge Instructions ---
Discharge Instructions General Discharge Information You were seen/treated for: Acute pancreatitis Special Instructions: 1please follow-up with your PCP in 1 week of discharge 2please follow-up with your oil sales and service rep in 1 week of discharge 3please avoid using alcohol Diet Continue normal diet: No Recommended Diet: Heart Healthy Acute Coronary Syndrome Inclusion Criteria At DC or during hospital stay patient has or had the following: ACS DIAGNOSIS No Discharge Core Measures Meds if any: Prescribed or Continued at Discharge Meds if any: NOT Prescribed or Continued at Discharge Congestive Heart Failure Inclusion Criteria At DC or during hospital stay patient has or had the following: CHF DIAGNOSIS No Discharge Core Measures Meds if any: Prescribed or Continued at Discharge Meds if any: NOT Prescribed or Continued at Discharge Cerebrovascular accident Inclusion Criteria At DC or during hospital stay patient has or had the following: CVA/TIA Diagnosis No Discharge Core Measures Meds if any: Prescribed or Continued at Discharge Meds if any: NOT Prescribed or Continued at Discharge Venous thromboembolism Inclusion Criteria VTE Diagnosis No VTE Type NONE VTE Confirmed by (Test) NONE Discharge Core Measures - Per Current guidelines, there needs to be overlap - treatment for the first 5 days of Warfarin therapy. - If discharged on Warfarin prior to 5 days of - overlap therapy, the patient will need to be - assessed for post discharge needs including - *Post discharge parental anticoagulation - *Warfarin and/or parental anticoagulation education - *Follow up date to check INR post discharge At least 5 days overlap therapy as Inpatient No Meds if any: Prescribed or Continued at Discharge Note: Overlap Therapy is Warfarin and Anticoagulant Meds if any: NOT Prescribed or Continued at Discharge
[2017-10-17] MEDS ORDERED: TRIAMCINOLONE A15 G3 TOP (14:27)
[2017-10-17 22:05] VITALS: BP 140/76
[2017-10-18 06:45] VITALS: BP 136/68
[2017-10-18 08:31] VITALS: BP 136/60
--- NOTE | 2017-10-18 08:40 | PN- Housestaff ---
Kimmy LYONS,Maame 10/18/17 0840: Subjective Follow-up For: Acute Pancreatitis, (initial lipase 25027) Tachycardia, titrating his Metoprolol EtOH withdrawal Anemia Thrombocytopenia Hyperkalemia, better Hypomagnesemia, repleted (today's pending) B/l lower extremity chronic fungal infection Tele-Events Since Last Visit: Overnight events, sinus rhythm, heart rate 80-90, QRS 0.08 Subjective: Patient was seen and examined at bedside, he complains of right knee pain especially when he bends his knee and is asking for pain meds especially before working with physical therapy. Otherwise he does not have any other complaints and no overnight events Review of Systems Constitutional: Reports: see HPI. Objective Last 24 Hrs of Vital Signs/I&O Vital Signs Date Time Temp Pulse Resp B/P B/P Pulse O2 O2 Flow FiO2 Mean Ox Delivery Rate 10/18 0831 136/60 / 0645 98.4 81 18 136/68 99 Room Air 06/08 2206 91 140/76 06/08 2205 99.2 91 18 140/76 98 Room Air /08 1600 73 06/08 1438 74 /08 1400 97.9 86 20 108/60 99 Room Air /08 1200 76 Intake & Output / 1600 /09 0800 06/ 0000 Intake Total Output Total 175 150 Balance -175 -150 Number 1 Bowel Movements Output, Urine 175 150 Physical Exam General Appearance: Alert, Oriented X3, Cooperative, No Acute Distress HEENT: Atraumatic, PERRLA, EOMI, Mucous Membr. moist/pink Cardiovascular: Normal S1, Normal S2 Lungs: Normal Air Movement Abdomen: Normal Bowel Sounds, Soft Extremities: No Clubbing, No Cyanosis, toe nail fungal infection and discolouration, psoriatic lesion on the right LE Assessment/Plan Assessment: 62-year-old male with past medical history of hypertension, psoriasis, alcohol abuse, chronic pancreatitis, who initially came in for generalized malaise, is currently being treated in the ICU for the management of following issues: Patient is currently being treated in the ICU as a gen med hold patient for the following issues: #Bilateral foot/nails chronic fungal infection -wound care requested Podiatry consult recommended to moisturize his feet with Vasline, triamcinolone cream on discharge, apply bandage to the left second toe, his toe nails were clipped by the survey crew chief yesterday # HTN, tachycardia His tachycardia is most likely due to alcohol withdrawal (heartrate today is still over 110, stable blood pressure Continue metoprolol 100 twice daily daily #Severe metabolic acidosis, resolved #Acute pancreatitis, likely due to alcohol use, resolving #Anemia: Normocytic normochromic, hemoglobin 7.7, will check iron TIBC, ferritin , vitamin B12 and folic acid Guaiac all stool #Alcohol withdrawal Patient has maximum CIWA of 4 over the past 24 hours, did not require any IV Ativan Diet: Heart healthy diet, DVT prophylaxis: SQ Heparin Code status: Full code Problem List: 1. Alcohol withdrawal 2. Tachycardia 3. Pancreatitis, alcoholic, acute Pain Ratin Pain Location: right knee Pain Goal: Pain 4 or less Pain Plan: [facility] Labs & Rationales: N/A [facility] 1458: Attending MD Review Statement Attending Statement Attending MD Statement: examined this patient, discuss w/resident/PA/APPLIED RESEARCHER, agreed w/resident/PA/APPLIED RESEARCHER, reviewed EMR data (avail) Attending Assessment/Plan: Doing well, tolerating diet well. Patient is stable for discharge with outpatient follow up.
[2017-10-18] MEDS ORDERED: NICOTINE PATCH1 EAC2 TOP (14:27)
[2017-10-18] MEDS ORDERED: TRIAMCINOLONE A15 G3 TOP (14:27)
[2017-10-18] MEDS ORDERED: LOPRESSOR100 M1 PO (14:27)
== END 2017-10-18 17:23 | disposition home health service (06) | DRG 282 ==
LOC: ERH 13:34 → ERHI 16:41 → CRI 16:41 → ENRESERV 19:17 → ENTRNSPT 20:24 → EDTRNSPTSTS 20:28 → CRI 20:45 → CMPTRNSPT 20:50 → CRI 10-13 07:26 → ENTRNSPT 10-15 15:15 → EDTRNSPT 10-15 15:22 → EDTRNSPTSTS 10-15 15:22 → 1NO 10-15 15:42 → CMPTRNSPT 10-15 15:50 → 1NO 10-16 08:11 → ENPENDDIS 10-18 14:13 → 1NO 10-18 17:23
PROVIDERS: Emergency Medicine; Internal Medicine; Preventive Medicine Public Health & General Preventive Medicine; Student in an Organized Health Care Education/Training Program
PROC: 02HV33Z Insertion of Infusion Device into Superior Vena Cava, Percutaneous Approach (ICD-10-PCS; principal; 2017-10-11)
DX: K85.20 Alcohol induced acute pancreatitis without necrosis or infection (principal); E87.2 Acidosis; E87.5 Hyperkalemia; N17.9 Acute kidney failure, unspecified; D69.6 Thrombocytopenia, unspecified; E83.42 Hypomagnesemia; F10.239 Alcohol dependence with withdrawal, unspecified; I10 Essential (primary) hypertension; L40.9 Psoriasis, unspecified; K86.0 Alcohol-induced chronic pancreatitis; L85.9 Epidermal thickening, unspecified; L60.2 Onychogryphosis; S91.209A Unspecified open wound of unspecified toe(s) with damage to nail, initial encounter; X58.XXXA Exposure to other specified factors, initial encounter; Y92.230 Patient room in hospital as the place of occurrence of the external cause; Z88.8 Allergy status to other drugs, medicaments and biological substances
CPT/HCPCS: 1NSP; 84133; 84300; CCU; 36415; 36592; 71045; 71046; 73110-RT; 74176; 80307; 81001; 82436; 82570; 87086; 87389; 93005; 93010; 96361; 96374; 96375; 97110-GO; 97116-GO; 97161-GP; 97530-GO; 99291; G0480; J0610; J1200; J1644; J1815; J1940; J2405; J2765; J3490; J7040; J7042; J7060

== ENCOUNTER 2017-11-09 02:12 | Inpatient (IN) | payer OTHER ==
[~2017-11-09] VITALS: Ht 172.7 cm; Wt 70.8 kg
[~2017-11-09 02:12] MED LIST changes: +AMLODIPINE BESY10 M1 PO; +CHLORTHALIDONE25 M1 PO; +LISINOPRIL40 M1 PO; +LOPRESSOR100 M1 PO; +METOPROLOL TAR100 M1 PO; +NICOTINE PATCH1 EAC2 TOP; +TRIAMCINOLONE A15 G3 TOP
--- NOTE | 2017-11-09 02:31 | ED GENERAL ADULT ---
History of Present Illness General Chief Complaint: Chest Pain Stated Complaint: CHEST PAIN Source: patient, EMS Exam Limitations: no limitations Vital Signs & Intake/Output Vital Signs & Intake/Output Vital Signs Date Time Temp Pulse Resp B/P B/P Pulse O2 O2 Flow FiO2 Mean Ox Delivery Rate 11/09 0445 97.8 78 18 182/79 100 Room Air 11/09 0214 98.0 75 18 146/63 100 Room Air Allergies Coded Allergies: procaine (HEART PALPITATIONS FOR A MINUTE AND A HALF 10/11/17) Reconcile Medications Metoprolol Tartrate (Lopressor) 100 MG TABLET 1 TAB PO BID HTN . Nicotine (Nicotine Patch) 14 MG/24 HOUR PATCH.TD24 14 MG TOP DAILY smoking cessation Triamcinolone Acetonide 0.1 % OINT...G. 1 ROBINA TOP BID PSORIASIS plaques apply to affected area(s). Triage Note: [facility] FROM HOME. PER EMS, PT AWOKE AT APPROX 0100 WITH 9/10 NON-RADIATING CHEST PAIN. EMS STATES PT HAS HAD THIS PAIN EVERY DAY FOR 1 MONTH. EMS STATED A MD TOLD PT THAT HE WAS ON TOO MANY BLOOD PRESSURE MEDS AND PT WAS TAKEN OFF MEDS. PT HAS HAD THE PAIN SINCE HE STOPPED TAKING HIS MEDS AND HE FEELS BETTER EVERY TIME HE TAKES THE MEDS. NSR ON THE MONITOR PER EMS. PT DENIES ANY CHEST PAIN OR PRESSURE AT THIS TIME. PT DENIES ANY COMPLAINTS AT THIS TIME. MONITOR APPLIED. NSR ON THE MONITOR. PT STATES HE CAME IN TONIGHT BECAUSE THE PAIN WAS WORSE THAN NORMAL. PT STATES "I TOOK AN EXTRA PILL SO NOW I FEEL BETTER." PT STATES "I WANT TO GET BACK ON MY MEDS. I SAW MY DOCTOR BUT HE SENT ME OUT IN AN AMBULANCE AND DIDN'T GIVE ME A CHANCE TO TALK ABOUT MY MEDS." Triage Nurses Notes Reviewed? yes Onset: Abrupt Duration: day(s): Timing: recent history HPI: 11/09/17 2:30 AM 62-year-old male presents to the emergency department complaining of chest pain. According to the patient he's been having intermittent chest pain that's been on and off really since discharge from the hospital several days ago. He says he has a history of pancreatitis and high blood pressure. At one time he was on 5 different antihypertensive medications. Now he's been reduced to 2. He says at the start of the chest pain this evening, he took one of his blood pressure medicine is and the pain went away. Currently he denies, any chest pain in the Emergency Department. No cough, no fever. Past History Travel History Traveled to [place] past 21 day No Medical History Any Pertinent Medical History? see below for history Neurological: NONE EENT: NONE Cardiovascular: hypertension, abnormal EKG findings Respiratory: NONE Gastrointestinal: pancreatitis Hepatic: NONE Renal: MARGI Musculoskeletal: NONE Psychiatric: alcohol dependence Endocrine: NONE Blood Disorders: NONE Cancer(s): NONE Other Medical Hx: Severe plaque psoriasis History of MRSA: No History of VRE: No History of CDIFF: No Surgical History Surgical History: non-contributory Psychosocial History Who do you live with Mother Services at Home None What is your primary language Kazakh Tobacco Use: Current Daily Use Daily Tobacco Use Amount/Type: => 5 Cigarettes daily Family History Family History, If Any: FATHER FH: brain cancer FH: lung cancer MOTHER FH: breast cancer Relation not specified for: FH: CAD (coronary artery disease) FH: hyperlipidemia FH: hypertension Hx Contributory? No Review of Systems Review of Systems Constitutional: Denies: fever. EENTM: Denies: visual changes. Respiratory: Denies: short of breath. Cardiovascular: Reports: chest pain. GI: Denies: abdominal pain. Genitourinary: Reports: no symptoms. Musculoskeletal: Reports: no symptoms. Skin: Reports: no symptoms. Neurological/Psychological: Reports: no symptoms. Hematologic/Endocrine: Reports: no symptoms. Immunologic/Allergic: Reports: no symptoms. Physical Exam Physical Exam General Appearance: well developed/nourished, alert, awake, anxious, mild distress Head: atraumatic, normal appearance Eyes: Bilateral: normal appearance, PERRL, EOMI. Ears, Nose, Throat: normal pharynx, normal ENT inspection Neck: normal inspection, supple, full range of motion Respiratory: normal breath sounds, chest non-tender, no respiratory distress Cardiovascular: regular rate/rhythm Peripheral Pulses: 4+ radial (R), 4+ radial (L) Gastrointestinal: normal bowel sounds, soft, non-tender Back: normal inspection, normal range of motion Extremities: normal inspection, normal range of motion Neurologic/Psych: no motor/sensory deficits, awake, alert, oriented x 3 Skin: intact, normal color, warm/dry Core Measures ACS in differential dx? No CVA/TIA Diagnosis: No Sepsis Present: No Sepsis Focused Exam Completed? No Progress Differential Diagnoses I considered the following diagnoses in my evaluation of the patient: [ Pancreatitis, acute coronary syndrome, pneumonia, pneumothorax] Plan of Care: Orders Procedure Date/time Status Heart Healthy Diet 11/09 B Active TROPONIN LEVEL 11/09 599 Active EKG 11/[address] in observation 11/09 456 Active ED Holding Orders 11/09 456 Active Vital Signs 11/09 456 Active Code Status 11/09 456 Active Patient Data 11/09 454 Active LIPASE 11/09 032 Complete EKG 11/10 235 Active Saline Lock 11/09 234 Active TROPONIN LEVEL 11/09 023 Complete D-DIMER 11/09 234 Complete COMPREHENSIVE METABOLIC PANEL 11/09 234 Complete CBC WITHOUT DIFFERENTIAL 11/09 234 Complete Laboratory Tests 11/09/17 0408: Anion Gap 9, Estimated GFR 44 L, BUN/Creatinine Ratio 15.6, Glucose 108 H, Calcium 8.8, Total Bilirubin 0.2, AST 14 L, ALT 18 L, Alkaline Phosphatase 111 , Troponin I 0.01, Total Protein 6.3, Albumin 3.1 L, Globulin 3.2, Albumin/ Globulin Ratio 1.0 L, Lipase 552 H 11/09/17 0329: D-Dimer High Sensitivty 467 H, CBC w Diff NO MAN DIFF REQ, RBC 2.48 L, MCV 95.6 H, MCH 31.8 H, MCHC 33.3, RDW 13.4, MPV 9.9, Gran % 68.7, Lymphocytes % 17.6 L, Monocytes % 9.7 H, Eosinophils % 3.1, Basophils % 0.9, Absolute Granulocytes 3.6, Absolute Lymphocytes 0.9 L, Absolute Monocytes 0.5, Absolute Eosinophils 0.2, Absolute Basophils 0 11/09/17 0236: Lipase Cancelled Patient was placed on a monitor, labs chest x-ray and EKG were Initial ED EKG: PENDING Departure Departure Disposition: STILL A PATIENT Condition: Stable Clinical Impression Primary Impression: Chest pain Referrals: Blayne LYONS,Contreras Adams (PCP/Family) Departure Forms: Customer Survey General Discharge Information Observation Note Spoke With: Napoleon Medrano MD Physician Advisor Notified: GOYO CROUCH DO Place Patient In: Non-ED OBS Care Area Rationale for Observation: My rational for observation is as follows [patient with ongoing active chest pain, will require serial troponins and telemetry monitoring, IV antibiotics for pneumonia, VQ scan]. Critical Care Note Critical Care Note Critical Care Time: non-applicable
--- NOTE | 2017-11-09 03:18 | RADIOLOGY REPORT ---
EXAMINATION: XR PORTABLE CHEST CLINICAL INFORMATION: Chest pain COMPARISON: Chest x-ray November 05, 2017 TECHNIQUE: Portable frontal view of the chest was obtained. 2:50 AM FINDINGS: There is a focal infiltrate in the left upper lobe with air bronchograms. There is also a smaller subtle hazy opacity over the right mid upper lobe lung likely also additional infiltrate. No pleural effusion. The cardiac and mediastinal contours are normal. There is no pulmonary vascular congestion. IMPRESSION: Bilateral infiltrates. Larger and denser in the left upper lobe than the infiltrate in the right midlung.
[2017-11-09 04:01] LABS: ABSOLUTE BASOPHIL COUNT 0 /CUMM (0.0-0.2); ABSOLUTE MONOCYTE COUNT 0.5 /CUMM (0.10-0.60); RED BLOOD CELL CT 2.48 /CUMM (4.70-6.10)
[2017-11-09 04:04] LABS: ABSOLUTE EOSINOPHIL COUNT 0.2 /CUMM (0.0-0.7); ABSOLUTE GRANULOCYTE CT 3.6 /CUMM (1.4-6.5); ABSOLUTE LYMPH COUNT 0.9 /CUMM (1.2-3.4); BASOPHIL % 0.9 % (0.0-2.0); EOSINOPHIL % 3.1 % (0-5); GRANULOCYTE % 68.7 % (42.2-75.2); HEMATOCRIT 23.7 % (42-52); MEAN CORPUSCULAR HGB 31.8 PG (27.0-31.0); MEAN CORPUSCULAR HGB CONC 33.3 G/DL (33.0-37.0); MEAN CORPUSCULAR VOLUME 95.6 FL (80.0-94.0); MEAN PLATELET VOLUME 9.9 FL (7.4-10.4); PLATELET COUNT 208 /CUMM (130-400); RBC DISTRIBUTION WIDTH 13.4 % (11.5-14.5)
[2017-11-09 04:26] LABS: WHITE BLOOD CELL COUNT 5.2 /CUMM (4.8-10.8)
--- NOTE | 2017-11-09 05:17 | History & Physical ---
Be Rivas MD 11/09/17 0516: General Information and HPI History of Present Illness: 62-year-old man with past medical history of EtOH abuse, hypertension, severe plaque psoriasis, and chronic pancreatitis seen for evaluation of chest pain. Patient was previously seen in the [place] ED on 11/05/17 after being sent in by his PCP for "EKG changes". His EKG at that time reportedly demonstrated "ST depressions and biphasic T waves in V2-V5". Troponin was negative 2. Case was discussed with loan documentation specialist Dr. Mathew whom agreed with discharge to home and outpatient follow-up. Patient reports waking up yesterday "feeling terrible". He felt intermittent mild chest pains throughout the day which have been present for approximately 1 month. He went for a walk but apparently made the pain better, however after returning home he was "much worse". He went to sleep but was awoken around 1 AM with chest pain that was "worse than usual". He describes the pain as a "discomfort/pressure" starting in his right shoulder radiating up to his neck and across his chest and is unchanged with breathing, position, or pressure to the area. Movement apparently makes it worse and only rest improves the discomfort. He reports associated feelings of nausea. For persistence and worsening of his symptoms he came to the [place] ED for evaluation. Additionally he admits to having headaches, diarrhea, and a chronic productive cough. Review of Systems Otherwise he denies any headache, fever, chills, blurred / double vision, lightheadedness, dizziness, numbness, tingling, weakness, current chest pain, palpitations, heartburn, shortness of breath, nausea, vomiting, constipation, urinary symptoms. Social History Patient reports smoking half pack of cigarettes per day, but used to smoke up to 1 pack per day for most of his life. His last drink of alcohol was reportedly at the "end of September". He denies any recreational drug use. He is limited in walking by leg pain after a short time. He is unable to lie flat comfortably without developing chest discomfort for which he sleeps on an incline. He is able to walk up at least one flight of stairs. He reports approximately 20 pound weight loss over the past 3 months that he attributes to his diarrhea since his pancreatitis episode. Objective Vitals-temperature 97.8-98.0, HR 75-78, RR 18, BP 146-182/63-79, O2 100% on room air Physical Exam -General: Well developed, unkempt middle-aged man in no acute distress -HEENT: NCAT, PERRL, EOMI, anicteric sclera, moist mucous membranes -Neck: Supple, no JVD/HJR, no bruits, trachea midline, no accessory respiratory muscle use -Cardio: Normal S1/S2 without murmurs, gallops, or rub; regular rate and rhythm -Pulmonary: Clear to auscultation bilaterally -Abdomen: Soft, non-tender, non-distended, bowel sounds intact -Neuro: Awake and alert, CN II-XII grossly intact -Extremities: Normal pulses, no edema Labs / Imaging / Studies -CBC: WBC 5.2, hemoglobin 7.9, hematocrit 23.7, platelet 208 -BMP: Sodium 140, potassium 4.8, chloride 113, CO2 19, BUN 25, creatinine 1.6, anion gap 9, glucose 108 -LFT: Within normal limit -Misc: Troponin I 0.01, lipase 552, d-dimer 467 -EKG 11/09/17: Old T-wave inversions V2-V5, new T-wave flattening/inversions I-aVL -Echocardiogram 07/14/14: LVEF 70% without regional wall motion abnormal -CXR: * Bilateral infiltrates. Larger and denser in the left upper lobe than the infiltrate in the right midlung. Assessment 62-year-old man with multiple medical problems significant for EtOH abuse and hypertension seen for evaluation of persistent/recurrent chest pain. Presently patient states that since he arrived to the ED he has had multiple waxing/waning episodes of vague nondescript chest pain. Vital signs are significant for elevated systolic blood pressure ranging 146-182. Significant lab studies include creatinine 1.6, lipase 552, d-dimer 467, H&H 7.9/23.7; WBC, and troponin I are normal. Chest x-ray demonstrates bilateral pulmonary infiltrates. EKG demonstrates old T-wave inversions in precordial leads with new ST T-wave changes in high lateral leads. Patient received 1 L of normal saline, ceftriaxone, and azithromycin in the ED. Clinically patient appears to have chest pain with mild EKG changes and negative troponin. Given patient's character of chest pain and its waxing/waning nature and chronic time course of over a month it is unlikely the patient is experiencing an acute coronary syndrome. Patient possibly has an underlying element of angina in the context of hypertension and anemia. Patient has bilateral pulmonary infiltrates without fever or leukocytosis or new pulmonary symptoms for which she received antibiotics for community-acquired pneumonia in the ED. d-dimer is elevated to 462 however when corrected for age is negative. Clinically patient does not appear to have an active pneumonia but will be empirically continues on antibiotics; CT chest will be obtained to further assess patients lung anatomy. Patient has acute kidney injury possibly due to lisinopril use and dehydration. Patient is to be placed under observation on the telemetry floor for telemetry monitoring, serial troponin/EKG, echocardiogram, antibiotics, chest imaging, and cardiology consultation. Problem List -Chest pain with EKG changes, rule out acute coronary syndrome -Acute kidney injury, likely multifactorial secondary to lisinopril and prerenal azotemia -Bilateral pulmonary infiltrates, possible pneumonia -Macrocytic anemia -Persistent diarrhea, possibly due to chronic pancreatitis versus C. difficile colitis -History of chronic pancreatitis -Cigarette smoker, half pack per day -History of EtOH abuse -Severe plaque psoriasis Plan -Place under observation on telemetry floor -Telemetry monitoring -CIWA -Guaic all stool -Avoid nephrotoxic agents -GI cocktail -normal saline at 100 mL/h -Ceftriaxone 1 g IV Daily -Azithromycin 500 mg IV Daily -Thiamine/folate/multivitamin -Calculate ASCVD, consider starting aspirin -Nicotine patch -Continue home meds: Metoprolol -Consider cardiology consult for evaluation of chest pain and possible outpatient stress test -Sputum culture -Monitor renal function -Urinalysis/urine toxicology -check magnesium, EtOH level, B12, folate, iron panel, lipid panel -Check C. difficile toxin -Trend troponin/EKG until peak or 3 negative sets -Transthoracic echocardiogram to assess for regional wall motion abnormality -CT Chest w/o IV contrast -Pain control with acetaminophen -Heart healthy diet -DVT prophylaxis with subcutaneous heparin -Full code -Outpatient GI evaluation for chronic pancreatitis Allergies/Medications Allergies: Coded Allergies: procaine (HEART PALPITATIONS FOR A MINUTE AND A HALF 10/11/17) Home Med list Metoprolol Tartrate (Lopressor) 100 MG TABLET 1 TAB PO BID HTN . Nicotine (Nicotine Patch) 14 MG/24 HOUR PATCH.TD24 14 MG TOP DAILY smoking cessation Triamcinolone Acetonide 0.1 % OINT...G. 1 ROBINA TOP BID PSORIASIS plaques apply to affected area(s). Past History Travel History Traveled to [place] past 21 day No Medical History Neurological: NONE EENT: NONE Cardiovascular: hypertension, abnormal EKG findings Respiratory: NONE Gastrointestinal: pancreatitis Hepatic: NONE Renal: MARGI Musculoskeletal: NONE Psychiatric: alcohol dependence Endocrine: NONE Blood Disorders: NONE Cancer(s): NONE Other Medical Hx: Severe plaque psoriasis History of MRSA: No History of VRE: No History of CDIFF: No Surgical History Surgical History: non-contributory Past Family/Social History Family History Relations & Conditions if any FATHER FH: brain cancer FH: lung cancer MOTHER FH: breast cancer Relation not specified for: FH: CAD (coronary artery disease) FH: hyperlipidemia FH: hypertension Psychosocial History Where do you live? Home Services at Home: None Smoking Status: Current Everyday Smoker Review of Systems Review of Systems Constitutional: Reports: see HPI. Exam & Diagnostic Data Last 24 Hrs of Vital Signs/I&O Vital Signs Date Time Temp Pulse Resp B/P B/P Pulse O2 O2 Flow FiO2 Mean Ox Delivery Rate 11/09 0552 83 18 177/72 100 Room Air 11/09 0445 97.8 78 18 182/79 100 Room Air 11/09 0214 98.0 75 18 146/63 100 Room Air Intake & Output 11/09 0800 11/09 0000 11/08 1600 Intake Total 0 Output Total Balance 0 Intake, Oral 0 Patient 70.307 kg Weight Assessment/Plan As Ranked By This Provider Problem List: 1. Chest pain Core Measures/Misc (01/26) Acute Coronary Syndrome ACS Diagnosis: No Congestive Heart Failure Congestive Heart Failure Diagnosis No Cerebrovascular Accident CVA/TIA Diagnosis: No VTE (View Protocol) VTE Risk Factors Age>40 No Mechanical VTE Prophylaxis d/t N/A MechProphylax Ordered No VTE Pharm Prophylaxis d/t NA PharmProphylax ordered Sepsis (View protocol) Sepsis Present: No If YES complete Sepsis Event Note If YES complete Sepsis Event Note Ana M Tolentino MD 11/09/17 1130: Core Measures/Misc (01/26) Sepsis (View protocol) If YES complete Sepsis Event Note If YES complete Sepsis Event Note Attending MD Review Statement Attending Statement Attending MD Statement: examined this patient, discuss w/resident/PA/COMMODITY MANAGEMENT SPECIALIST, agreed w/resident/PA/COMMODITY MANAGEMENT SPECIALIST, reviewed EMR data (avail), discussed with nursing, reviewed images Attending Assessment/Plan: 62-year-old male past medical history of hypertension, alcohol abuse, psoriasis and chronic pancreatitis. He was recently here in October and he was treated for acute on chronic pancreatitis with MARGI. He returns with this episode of chest pain. He does have risk factors of tobacco and hypertension and questionable compliance with medications. He has a chronic smoker's cough without a fever or white count but a chest x-ray that shows an infiltrate in his left upper lobe and right middle lobe. At this point of the same concerned about an aspiration pneumonia given the alcohol use and ACS given the chest pain. We'll bring him into telemetry, call a formal cardiology consult. His first troponin is negative and he will need an echo, will likely do aspirin and statin beta caleb, DVT prophylaxis and follow closely.
[2017-11-09 06:13] VITALS: BP 116/72
[2017-11-09 10:00] VITALS: BP 116/72
--- NOTE | 2017-11-09 11:39 | Admission Certification ---
Admission Certification Certification Statement - As attending physician, I certify that at the time of - admission, based on clinical presentation, severity of - symptoms, need for further diagnostic testing and - therapeutic interventions, and risk of adverse outcomes - without in-hospital treatment, in my clinical assessment, - this patient requires an acute hospital stay for a minimum - of two nights or longer. I have also considered psychsocial - factors such as support system, advanced age, financial - issues, cognitive issues, and failed out-patient treatments, - past re-admission history, safety of patient, and lack of - compliance as applicable. Specific rationale supporting this admission is: Acute coronary syndrome with multi lobar pneumonia
[2017-11-09] MEDS ORDERED: LIPITOR40 M1 PO (11:43)
[2017-11-09] MEDS ORDERED: ASPIRIN EC81 M1 PO (11:43)
[2017-11-09] MEDS ORDERED: BRILINTA90 M1 PO (11:43)
--- NOTE | 2017-11-09 11:46 | Patient Discharge Instructions ---
Discharge Instructions General Discharge Information You were seen/treated for: Acute chest pain Acute inferior wall hypokinesis Multilobar pneumonia possible aspiration You had these procedures: None Special Instructions: Please follow-up with PCP in one week after discharge Please follow-up with director of outpatient services in 1 week after discharge Please call and make a follow up with Institutional Cook Dr. Cat within one week after discharge. Diet Continue normal diet: Yes Activity Full Activity/No Limits: Yes Acute Coronary Syndrome Inclusion Criteria At DC or during hospital stay patient has or had the following: ACS DIAGNOSIS Yes Discharge Core Measures Meds if any: Prescribed or Continued at Discharge Meds if any: NOT Prescribed or Continued at Discharge Congestive Heart Failure Inclusion Criteria At DC or during hospital stay patient has or had the following: CHF DIAGNOSIS No Discharge Core Measures Meds if any: Prescribed or Continued at Discharge Meds if any: NOT Prescribed or Continued at Discharge Cerebrovascular accident Inclusion Criteria At DC or during hospital stay patient has or had the following: CVA/TIA Diagnosis No Discharge Core Measures Meds if any: Prescribed or Continued at Discharge Meds if any: NOT Prescribed or Continued at Discharge Venous thromboembolism Inclusion Criteria VTE Diagnosis No VTE Type NONE VTE Confirmed by (Test) NONE Discharge Core Measures - Per Current guidelines, there needs to be overlap - treatment for the first 5 days of Warfarin therapy. - If discharged on Warfarin prior to 5 days of - overlap therapy, the patient will need to be - assessed for post discharge needs including - *Post discharge parental anticoagulation - *Warfarin and/or parental anticoagulation education - *Follow up date to check INR post discharge At least 5 days overlap therapy as Inpatient Yes Meds if any: Prescribed or Continued at Discharge Note: Overlap Therapy is Warfarin and Anticoagulant Meds if any: NOT Prescribed or Continued at Discharge
--- NOTE | 2017-11-09 12:13 | Discharge Summary ---
See Addendum Visit Information Visit Dates Admission Date: 11/09/17 Discharge Date: 11/09/2017 Hospital Course Course Attending Physician: Ana M Tolentino MD Primary Care Physician: Blayne LYONS,Contreras Adams Hospital Course: 62-year-old male past medical history of hypertension, alcohol abuse, psoriasis and chronic pancreatitis. He was recently here in October at [facility] and he was treated for acute on chronic pancreatitis with MARGI. He returns with episode of chest pain. He reports ongoing chest pain on and off since his discharge from [facility]. However last night chest pain lasted for more than 20 minutes. He had one more episode of chest pain in the middle of the night, 10 out of 10, prompted him to come to the emergency room for evaluation. He describes the pain as a "discomfort/pressure" starting in his right shoulder radiating up to his neck and across his chest and is unchanged with breathing, position, or pressure to the area. Movement apparently makes it worse and only rest improves the discomfort. He reports associated feelings of nausea. For persistence and worsening of his symptoms he came to the [place] ED for evaluation. Additionally he admits to having headaches, diarrhea, and a chronic productive cough. -Vitals-temperature 97.8-98.0, HR 75-78, RR 18, BP 146-182/63-79, O2 100% on room air Labs / Imaging / Studies -CBC: WBC 5.2, hemoglobin 7.9, hematocrit 23.7, platelet 208 -BMP: Sodium 140, potassium 4.8, chloride 113, CO2 19, BUN 25, creatinine 1.6, anion gap 9, glucose 108 -LFT: Within normal limit -Misc: Troponin I 0.01, lipase 552, d-dimer 467 -EKG 11/09/17: Old T-wave inversions V2-V5, new T-wave flattening/inversions I-aVL , ST depressions in lateral leads -Echocardiogram 07/14/14: LVEF 70% without regional wall motion abnormalities. Echo at bedside this morning showed inferolateral wall hypokinesis. -CXR: * Bilateral infiltrates. Larger and denser in the left upper lobe than the infiltrate in the right midlung. Assessment and plan Acute chest pain 62-year-old man with multiple medical problems significant for EtOH abuse and hypertension seen for evaluation of persistent/recurrent chest pain. Troponin was within normal limits at the time of admission. EKG demonstrates old T-wave inversions in precordial leads with new ST T-wave changes/ST depressions in high lateral leads. Echocardiogram at bedside showed anterolateral hypokinesis which is a new finding compared to the prior echocardiogram. Given his typical chest pain, EKG findings and echo findings-patient possibly has acute coronary syndrome most likely NSTEMI. Patient was evaluated by wealth management director Dr. Vivar who recommended urgent cardiac catheterization. Patient will be transferred to [facility] for urgent cardiac Procedure. Patient was made nothing by mouth. He was loaded with aspirin 325 mg and brillinta 180 mg. We started him on aspirin 81 daily, brillinta 90 twice daily, Lipitor 40 daily. Patient was started on IV heparin drip which will be continued. Multi lobar pneumonia Patient has bilateral pulmonary infiltrates without fever or leukocytosis. Given his cough, chest x-ray findings patient was started on ceftriaxone and azithromycin for possible aspiration pneumonia. Would recommend to continue ceftriaxone and azithromycin for 7 days. Acute kidney injury Patient has acute kidney injury possibly due to lisinopril use and dehydration. Creatinine 1.6 at the time of admission. His baseline creatinine was 1.2. Patient was given IV fluids in the hospital. Chronic issues -History of chronic pancreatitis -Cigarette smoker, half pack per day -History of EtOH abuse -Severe plaque psoriasis -DVT prophylaxis with heparin -Full code Allergies: Coded Allergies: procaine (HEART PALPITATIONS FOR A MINUTE AND A HALF 10/11/17) Pertinent Lab Results: CXR FINDINGS: There is a focal infiltrate in the left upper lobe with air bronchograms. There is also a smaller subtle hazy opacity over the right mid upper lobe lung likely also additional infiltrate. No pleural effusion. The cardiac and mediastinal contours are normal. There is no pulmonary vascular congestion. IMPRESSION: Bilateral infiltrates. Larger and denser in the left upper lobe than the infiltrate in the right midlung. Disposition Summary Disposition Principal Diagnosis: Acute chest pain Acute hypokinesis of inferolateral wall on echocardiogram Multilobar pneumonia Acute kidney injury Additional Diagnosis: ABOVE Discharge Disposition: other general hospital Discharge Instructions General Discharge Information Code Status: Full Code Patient's Diet: Patient is nothing by mouth waiting for cardiac cath procedure Patient's Activity: As tolerated Follow-Up Instructions/Appts: Please follow-up with PCP in one week after discharge Please follow-up with wealth management director as per recommendations Please follow-up with volcanology professor as an outpatient for chronic pancreatitis Medications at Discharge Discharge Medications: Continue taking these medications: Nicotine (Nicotine Patch) 14 MG/24 HOUR PATCH.TD24 14 Milligram On the skin DAILY Qty = 30 Comments: Last Taken:10/18/17 [id number] Metoprolol Tartrate (Lopressor) 100 MG TABLET 1 Tablet ORAL TWICE DAILY Qty = 60 Instructions: . Comments: Last Taken:10/18/17 Time:0800 Triamcinolone Acetonide (Triamcinolone Acetonide) 0.1 % OINT...G. 1 Application On the skin TWICE DAILY Qty = 2 Instructions: apply to affected area(s). Start taking the following new medications: Aspirin (Ecotrin*) 81 MG TABLET.DR 1 Tablet ORAL DAILY Qty = 30 No Refills Atorvastatin Calcium (Lipitor) 40 MG TABLET 1 Tablet ORAL DAILY Qty = 30 No Refills Ticagrelor (Brilinta) 90 MG TABLET 1 Tablet ORAL TWICE DAILY Qty = 60 No Refills Copies To: Blayne LYONS,Contreras Adams
--- NOTE | 2017-11-09 15:12 | Event Note ---
Event Note Event Note: Received a call from radiologist about the CAT scan reading which is showing multiple masses in the lungs more prominent in the left upper lobe a place where he had previous pneumonia which has resolved well but now having a new mass. He has another mass on the basis of the right lung. These are new significant masses and will need follow-up once we take care of the acute presenting condition and the instruction will be included in the discharge recommendations for the patient for further follow-up. I updated the patient personally.
--- NOTE | 2017-11-09 15:15 | CT SCAN REPORT ---
EXAMINATION: CT CHEST WITHOUT CONTRAST CLINICAL INFORMATION: 62-year-old male with chest pain, cough, weight loss and abnormal chest radiograph. COMPARISON: Chest radiograph done earlier today, and prior chest radiograph done on 11/05/[address] of the chest done on 07/08/2014. TECHNIQUE: Multidetector volumetric CT imaging of the chest was done. Axial MIP volume rendering provided. Sagittal and coronal reformatted images were obtained. DLP: 290.16 mGy-cm FINDINGS: CASHIER SELF SERVICE GASOLINE: Focal airspace disease is noted at left upper lung and right perihilar region. LUNGS: There is a thin walled irregular cavitary lesion identified at left upper lobe anteromedially along the paramediastinal region, measures 3.2 x 1.8 x 1.2 cm at its maximum anteroposterior by craniocaudal by transverse dimension (see the rios images) shows overlying pleural-parenchymal thickening, presumably represent pleural parenchymal scar. The finding would be most consistent with residual scar tissue from prior cavitary pneumonia seen on 07/08/2014. Inseparable from this cavitary lesion, there is a new solid irregular spiculated mass identified, measures 2.3 x 2.4 x 2.3 cm at its maximum anteroposterior by transverse by craniocaudal dimension (see the rios images), suspicious for malignancy. Infection is included in the differential. There is a 0.8 cm thick-walled cavitary lesion identified at left lower lobe posterolaterally, appears significantly smaller (measured 2.0 cm on 07/08/2014) since prior study. Interval development of a pleural-based dense focal airspace disease noted measuring 2.3 cm at its maximum dimension at superior segment of right lower lobe of the lung (see the rios images). Differential includes pneumonia and less likely to be pulmonary infarct. Another 0.8 cm peridiaphragmatic focal nodule is noted along the posterior medial anterior aspect of the right lung base, new since prior study. The remainder of the lung kasper appear clear. The tracheobronchial tree appeared patent. MEDIASTINUM: Atherosclerotic disease is noted within the aorta and its branches including significant coronary arterial calcifications, unchanged. Multiple shotty prevascular, paratracheal and subcarinal lymph nodes are noted, by morphology and size criteria within normal limits. No definite hilar lymphadenopathy on these nonenhanced study. PLEURA: There is no pleural effusion. No pleural mass or thickening. AXILLA: Multiple bilateral axillary lymph nodes are noted, appears stable. UPPER ABDOMEN: There is no adrenal mass present. OSSEOUS STRUCTURES: No suspicious lytic or sclerotic abnormalities. Stable focal area of sclerosis is noted along the posteromedial aspect of the right sixth rib, unchanged since 2014, likely represent a bone island. IMPRESSION: 1. At the site of the previously documented left upper lobar cavitary pneumonia as was documented on prior CT study dated 07/08/2014, there is a residual thin walled irregular cavitary lesion identified with overlying pleural-parenchymal scar. 2. Immediately adjacent to the residual cavitary lesion, there is a new solid irregular 2.3 cm maximum dimension mass identified, suspicious for malignancy. Infection however is included in the differential. 3. Previously documented 2 cm cavitary lesion involving left lower lobe of the lung appears significantly smaller and currently shows 0.8 cm residual lesion. 4. Interval development of pleural-based dense ill-defined focal airspace disease measuring 2.3 cm at superior segment of right lower lobe of the lung, may represent pneumonia versus pulmonary infarct. 5. 0.8 cm new lung nodule is also noted along the peridiaphragmatic surface of right lung base, indeterminate etiology. 6. No pathologically enlarged mediastinal and/or hilar or axillary lymphadenopathy or adrenal mass. 7. Stable subcentimeter focal area of presumed bone island involving posteromedial aspect of the right sixth rib, unchanged since 2014. This critical result was discussed with Dr. Henriquez , the resident physician taking care of the patient at 3:02 PM on 11/09/2017 and it was ascertained that the content and urgency of the report was understood at the time of direct communication.
[2017-11-09] MEDS ORDERED: HEPARIN-1/25000 UNI1 IV (15:35)
--- NOTE | 2017-11-09 21:04 | Cons- Cardiology ---
General Information and HPI Consulting Request Date of Consult: 11/09/17 Requested By: Rowdy LYONS,Madalyn History of Present Illness: 62 year old patient with history of hypertension, peripheral vascular disease ( left leg claudication), active smoker, recent hospitalization at [facility] for acute NEIL induced pancreatitis. Patient called EMS around 3AM for severe retrosternal chest pains irradiating to right shoulder and throat, lasting approximately hour. The pain had woken the patient from sleep around 1 AM. He had presented similar chest pains the previous day, less intense, lasting 10- 20 minutes, at rest, improved after taking metoprolol. Patient reports having chest pains with little effort a month ago, since discharge for his episode of acute pancreatitis, and a shortly afterward he was experiencing angina at rest daily, then multiple times daily over the last week, short in duration. EKG showed modest ST depression in lateral leads during pain, improving on the pain-free EKG, as well as rather tall R waves in V1V2, arousing suspicion for posterolateral UT. First set of troponins was negative however. Echocardiogram this morning revealed severe hypokinesis of the inferolateral wall, associated with MR by restriction of posterior leaflet, consistent with ischemia of inferior wall. In addition, patient has been complaining of cough over the past week, infiltrates were observed on CT scan of the chest compatible with left upper and right lower lobe pneumonia. Patient is not clinically septic however. Patient was transferred for urgent coronary angiography with Dr Alan at [facility], after being loaded with Brilinta 180mg PO, ASA 325 mg. Allergies/Medications Allergies: Coded Allergies: procaine (HEART PALPITATIONS FOR A MINUTE AND A HALF 10/11/17) Home Med List: Aspirin (Ecotrin*) 81 MG TABLET.DR 1 TAB PO DAILY acs Atorvastatin Calcium (Lipitor) 40 MG TABLET 1 TAB PO DAILY acs Heparin (Heparin-1/2NS 25,000 Units/500) 25,000 UNIT/500 ML (50 UNIT/ML) IV.SOLN 25,000 UNITS IV DAILY ACS Titrate per ACS protocol Metoprolol Tartrate (Lopressor) 100 MG TABLET 1 TAB PO BID HTN . Nicotine (Nicotine Patch) 14 MG/24 HOUR PATCH.TD24 14 MG TOP DAILY smoking cessation Ticagrelor (Brilinta) 90 MG TABLET 1 TAB PO BID NSTEMI Triamcinolone Acetonide 0.1 % OINT...G. 1 ROBINA TOP BID PSORIASIS plaques apply to affected area(s). Current Medications: Current Medications Sig/Bruce Start time Last Medication Dose Route Stop Time Status Admin Acetaminophen 650 MG Q6P PRN 11/09 0615 DCD PO Aspirin 325 MG ONCE ONE 11/09 1145 DC 07 PO 11/09 1146 1200 Atorvastatin Calcium 80 MG 1700 11/09 1700 DCD 07 PO 1550 Azithromycin 500 MG DAILY 11/10 899 DCD Sodium Chloride 250 ML IV Azithromycin 500 MG ONCE ONE 11/09 0515 DC 11/09 Sodium Chloride 250 ML IV 11/09 0614 0535 Ceftriaxone Sodium 1,000 MG DAILY 11/10 899 DCD IV Ceftriaxone Sodium 0 .STK-MED ONE 11/09 0521 DC .ROUTE Ceftriaxone Sodium 1,000 MG ONCE ONE 11/09 0515 DC 11/09 IV 11/09 0516 0530 Folic Acid 1 MG DAILY 11/09 0900 DCD 11/09 PO 1000 Heparin Sodium 5,000 UNIT Q8 11/09 1400 DC (Porcine) SC Heparin Sodium/ 25,000 UNIT Q24H 11/09 1145 DCD 11/09 Dextrose IV 1207 Dextrose/Water 500 ML Metoprolol Tartrate 100 MG BID 11/09 0900 DCD 11/09 PO 1000 Multivitamins 1 TAB DAILY 11/09 09 DCD 11/09 PO 0959 Nicotine 7 MG Q24 11/09 0900 DCD 11/09 TOP 1000 Sodium Chloride 1,000 ML .Q10H 11/09 0615 DCD 11/09 IV 0629 Sodium Chloride 1,000 ML BOLUS ONE 11/09 0245 DC 11/09 IV 11/09 0444 0411 Thiamine HCl 100 MG DAILY 11/09 0900 DCD 11/09 PO 1000 Ticagrelor 90 MG Q12H 11/10 0000 DCD PO Ticagrelor 180 MG ONCE ONE 11/09 1145 DC 11/09 PO 11/09 1146 1200 Review of Systems Review of Systems Constitutional: Reports: diaphoresis, weakness. EENTM: Reports: throat pain. Denies: blurred vision, visual changes, icterus, hearing changes, epistaxis. Cardiovascular: Reports: chest pain, palpitations. Denies: edema, orthopena, peripheral edema, syncope. Respiratory: Reports: cough, short of breath. Denies: hemoptysis, orthopnea, sputum production, stridor. GI: Denies: abdominal pain, bloating, constipation, bowel incontinence, bloody stool , vomiting. Genitourinary: Denies: dysuria, hematuria. Musculoskeletal: Reports: back pain. Skin: Reports: no symptoms. Neurological/Psychological: Reports: emotional problems. Denies: depressed, headache, paresthesia, pre- existing deficit, tingling, tremors, weakness. Hematologic/Endocrine: Denies: bleeding. Past History Travel History Traveled to [place] past 21 day No Medical History Blood Transfusion Hx: No Neurological: NONE EENT: NONE Cardiovascular: hypertension, abnormal EKG findings Respiratory: NONE Gastrointestinal: pancreatitis Hepatic: NONE Renal: MARGI Musculoskeletal: NONE Psychiatric: alcohol dependence Endocrine: NONE Blood Disorders: NONE Cancer(s): NONE Other Medical Hx: Severe plaque psoriasis Surgical History Surgical History: non-contributory Family History Relations & Conditions If Any: FATHER FH: brain cancer FH: lung cancer MOTHER FH: breast cancer Relation not specified for: FH: CAD (coronary artery disease) FH: hyperlipidemia FH: hypertension Psychosocial History Where Do You Live? Home Services at Home: None Smoking Status: Current Everyday Smoker Exam & Diagnostic Data Vital Signs and I&O Vital Signs Date Time Temp Pulse Resp B/P B/P Pulse O2 O2 Flow FiO2 Mean Ox Delivery Rate 11/09 1000 82 116/72 07/ 0613 100 Room Air 11/09 0613 98.0 82 18 116/72 100 Room Air 11/09 0552 83 18 177/72 100 Room Air 11/09 0445 97.8 78 18 182/79 100 Room Air 11/09 0214 98.0 75 18 146/63 100 Room Air Intake & Output 11/09 1600 11/09 0800 11/09 0000 11/08 1600 11/08 0800 11/08 0000 Intake Total 700 0 Output Total 800 150 Balance -100 -150 Intake, IV 700 Intake, Oral 0 Number 1 Bowel Movements Output, Urine 800 150 Patient 156 lb Weight Weight Bed scale Measurement Method Physical Exam: -General: no acute distress, alert, oriented -HEENT: anicteric sclera, moist mucous membranes -Neck: Supple, no JVD/HJR, no bruits, trachea midline, no accessory respiratory muscle use -Cardio: S1S2 and S4 gallop, no rub;no audible murmur, apex is not displaced -Pulmonary: Clear to auscultation bilaterally -Abdomen: Soft, non-tender, non-distended, bowel sounds intact -Neuro: Awake and alert, no focal motor or sensory deficits -Extremities: Normal pulses, good capillary refill bilaterally,no edema Labs/Mejia Results: Laboratory Tests 11/09 11/09 11/09 11/09 1600 1135 0612 0600 Chemistry Troponin I (<0.11 ng/ml) Cancelled 0.02 Cancelled Toxicology Methadone Screen Cancelled Barbiturate Screen Cancelled Ur Phencyclidine Scrn Cancelled Amphetamines Screen Cancelled U Benzodiazepines Scrn Cancelled Urine Cocaine Screen Cancelled Urine Cannabis Screen Cancelled Urines Urine Color Cancelled Urine Clarity Cancelled Urine pH Cancelled Ur Specific Talcott Cancelled Urine Protein Cancelled Urine Ketones Cancelled Urine Nitrite Cancelled Urine Bilirubin Cancelled Urine Urobilinogen Cancelled Ur Leukocyte Esterase Cancelled Ur Microscopic Cancelled Urine Hemoglobin Cancelled Urine Glucose Cancelled 11/09 11/09 11/09 0408 0329 0236 Chemistry Sodium (137 - 145 mmol/L) 140 Potassium (3.5 - 5.1 mmol/L) 4.8 Chloride (98 - 107 mmol/L) 113 H Carbon Dioxide (22 - 30 mmol/L) 19 L Anion Gap (5 - 16) 9 BUN (9 - 20 mg/dL) 25 H Creatinine (0.7 - 1.2 mg/dL) 1.6 H Estimated GFR (>60 ml/min) 44 L BUN/Creatinine Ratio (7 - 25 %) 15.6 Glucose (65 - 99 mg/dL) 108 H Calcium (8.4 - 10.2 mg/dL) 8.8 Magnesium (1.6 - 2.3 mg/dL) 1.7 Iron (49 - 181 ug/dL) 45 L TIBC (261 - 462 ug/dL) 252 L Ferritin (17.9 - 464 ng/mL) 285.0 Total Bilirubin (0.2 - 1.3 mg/dL) 0.2 AST (17 - 59 U/L) 14 L ALT (21 - 72 U/L) 18 L Alkaline Phosphatase (< 127 U/L) 111 Troponin I (<0.11 ng/ml) 0.01 Total Protein (6.3 - 8.2 g/dL) 6.3 Albumin (3.5 - 5.0 g/dL) 3.1 L Globulin (1.9 - 4.2 gm/dL) 3.2 Albumin/Globulin Ratio (1.1 - 2.2 %) 1.0 L Triglycerides (<150 mg/dL) 153 H Cholesterol (< 200 MG/DL) 153 LDL Cholesterol, Calc (65 - 129 mg/dL) 98 HDL Cholesterol (40 - 60 mg/dL) 25 L Cholesterol/HDL Ratio (0.00 - 4.88 %) 6 H Lipase (23 - 300 U/L) 552 H Cancelled Vitamin B12 (239 - 931 pg/mL) 421 Folate (2.76 - 20.0 ng/mL) 7.0 Coagulation D-Dimer High Sensitivty (0 - 243 ng/ml) 467 H Hematology CBC w Diff NO MAN DIFF REQ WBC (4.8 - 10.8 /CUMM) 5.2 RBC (4.70 - 6.10 /CUMM) 2.48 L Hgb (14.0 - 18.0 G/DL) 7.9 L Hct (42 - 52 %) 23.7 L MCV (80.0 - 94.0 FL) 95.6 H MCH (27.0 - 31.0 PG) 31.8 H MCHC (33.0 - 37.0 G/DL) 33.3 RDW (11.5 - 14.5 %) 13.4 Plt Count (130 - 400 /CUMM) 208 MPV (7.4 - 10.4 FL) 9.9 Gran % (42.2 - 75.2 %) 68.7 Lymphocytes % (20.5 - 51.1 %) 17.6 L Monocytes % (1.7 - 9.3 %) 9.7 H Eosinophils % (0 - 5 %) 3.1 Basophils % (0.0 - 2.0 %) 0.9 Absolute Granulocytes (1.4 - 6.5 /CUMM) 3.6 Absolute Lymphocytes (1.2 - 3.4 /CUMM) 0.9 L Absolute Monocytes (0.10 - 0.60 /CUMM) 0.5 Absolute Eosinophils (0.0 - 0.7 /CUMM) 0.2 Absolute Basophils (0.0 - 0.2 /CUMM) 0 Toxicology Serum Alcohol (<10 MG/DL) < 10.0 Assessment/Plan Assessment/Plan 62 year old patient presenting with typical crescenco angina, with prolonged episode last night associated with dynamic EKG changes and wall motion abnormality. This is a high risk scenario wether or not troponins are positive. Patient is loaded with brilinta and asa. Y-axis called and patient transferred to the care of dr Alan. Recent acute pancreatitis: Will have to be cautious with new medication... alcohol dependance: monitor for signs of alcohol withdrawal. Consult Acknowledgment - Thank you for your consult request.
--- NOTE | 2017-11-10 00:02 | ECHOCARDIOGRAM REPORT ---
PERLITA LEYVA Age: 62 : 1955 Gender: M Exam Date: 11/09/2017 09:04 Exam Location: [address] Ht (in): 68 Wt (lb): 155 BSA: 1.84 BP: 116 / 72 Ordering Physician: Be Rivas MD Referring Physician: Be Rivas MD Technologist: Shante Palacios [facility] Room Number: 180-02 Indications: CHEST PAIN Rhythm: Sinus Technical Quality: good FINDINGS Left Ventricle Normal left ventricular size. Severe hypokinesis of inferior and inferolateral [place]cd[place], basal to mid sections. pseudonormal diastolic filling pattern (grade 2). The ejection fraction is visually estimated at 45 %. Right Ventricle The right ventricle is normal in size and function. Right Atrium The right atrium is normal in size. Left Atrium The left atrium is midly enlarged. The interatrial septum is intact. Mitral Valve There is mild-moderate mitral regurgitation by restriction of the posterior leaflet. Aortic Valve moderate sclerosis of the aortic valve annulus and leaflets without significant valvular gradient. There is no aortic regurgitation. Tricuspid Valve The tricuspid valve is normal in structure and function. There is mild tricuspid regurgitation. Pulmonary artery systolic pressure is normal. Pulmonic Valve Structurally normal pulmonic valve. There is trace pulmonic regurgitation. Pericardium Normal pericardium without effusion. No pleural effusion. Great Vessels Normal aortic root dimension. The aortic arch and great vessels are well seen and are normal. CONCLUSIONS Severe hypokinesis of inferior and inferolateral mcdonough, basal to mid sections. Pseudonormal diastolic filling pattern (grade 2). The ejection fraction is visually estimated at 45 %. The right ventricle is normal in size and function. The left atrium is midly enlarged. There is mild-moderate mitral regurgitation by restriction of the posterior leaflet. Moderate sclerosis of the aortic valve annulus and leaflets without significant valvular gradient. There is mild tricuspid regurgitation. Pulmonary artery systolic pressure is normal. There is trace pulmonic regurgitation. Normal pericardium without effusion. Normal aortic root dimension. Gail Vivar M.D. (Electronically Signed) Final Date: 10 November 2017 00:01 MEASUREMENTS (Male / Female) Normal Values 2D ECHO LV Diastolic Diameter PLAX 5.3 cm 4.2 - 5.9 / 3.9 - 5.3 cm LV Systolic Diameter PLAX 3.9 cm 2.1 - 4.0 cm LV Fractional Shortening PLAX 26.4 % 25 - 46 % LV Ejection Fraction 2D Teich 51.3 % IVS Diastolic Thickness 1.2 cm LVPW Diastolic Thickness 1.2 cm LV Relative Wall Thickness 0.5 RV Internal Dim ED PLAX 2.4 cm 1.9 - 3.8 cm LVOT Diameter 1.9 cm Aortic Root Diameter 2.6 cm LA Systolic Diameter LX 4.6 cm 3.0 - 4.0 / 2.7 - 3.8 cm LA Volume 47.0 cm 18 - 58 / 22 - 52 cm Ascending Aorta Diameter 3.0 cm DOPPLER AV Peak Velocity 124.0 cm/s AV Peak Gradient 6.2 mmHg AV Mean Velocity 76.8 cm/s AV Mean Gradient 3.0 mmHg AV Velocity Time Integral 26.0 cm LVOT Peak Velocity 104.0 cm/s LVOT Peak Gradient 4.3 mmHg LVOT Mean Velocity 67.0 cm/s LVOT Mean Gradient 2.0 mmHg LVOT Velocity Time Integral 24.3 cm LVOT Stroke Volume 68.9 cm AV Area Cont Eq vti 2.6 cm AV Area Cont Eq pk 2.4 cm MV Peak Velocity 102.0 cm/s MV Peak Gradient 4.2 mmHg MV Mean Velocity 60.7 cm/s MV Mean Gradient 2.0 mmHg Mitral E Point Velocity 103.0 cm/s Mitral A Point Velocity 90.3 cm/s Mitral E to A Ratio 1.1 MV PHT Velocity 105.0 cm/s MV Deceleration [place] 411.0 cm/s MV Pressure Half Time 76.6 ms MV Area PHT 2.9 cm MV Deceleration Time 177.0 ms TR Peak Velocity 143.0 cm/s TR Peak Gradient 8.2 mmHg Right Atrial Pressure 10.0 mmHg Pulmonary Artery Systolic Pressu 18.2 mmHg Right Ventricular Systolic Press 18.2 mmHg PV Peak Velocity 85.1 cm/s PV Peak Gradient 2.9 mmHg PV Mean Velocity 65.1 cm/s PV Mean Gradient 2.0 mmHg PV Velocity Time Integral 20.8 cm LV E' Lateral Velocity 9.7 cm/s Mitral E to LV E' Lateral Ratio 10.7 LV E' Septal Velocity 5.1 cm/s Mitral E to LV E' Septal Ratio 20.3
== END 2017-11-09 16:23 | disposition short-term general hospital (02) | DRG 190 ==
LOC: ERH 02:12 → 1NO 04:57 → ERHI 04:57 → ENRESERV 05:18 → 1NO 05:55
PROVIDERS: Emergency Medicine
DX: I21.4 Non-ST elevation (NSTEMI) myocardial infarction (principal); N17.9 Acute kidney failure, unspecified; F10.10 Alcohol abuse, uncomplicated; L40.0 Psoriasis vulgaris; K86.1 Other chronic pancreatitis; F17.210 Nicotine dependence, cigarettes, uncomplicated; J18.1 Lobar pneumonia, unspecified organism
CPT/HCPCS: 1NSP; 71045; 80307; 87070; 93005; 93010; 93306; G0480; J0456; J0696; J1644; J3490; J7040; J7060